=== PATIENT | female | born 1955 | race Caucasian/White ===

== ENCOUNTER 2018-02-05 23:07 | Inpatient (IN) ==
--- NOTE | 2018-02-05 23:40 | ED ---
HPI General Chief complaint: Head Injury Stated complaint: Head Injury Time Seen by Provider: 02/05/18 23:16 Source: patient Mode of arrival: EMS Limitations: no limitations History of Present Illness HPI Narrative: The patient is a 62-year-old female who presents to the emergency department as a transfer from [place], [place]. The patient was seen at [facility] for hematemesis and blood in her stool that started yesterday. The patient describes the blood as bright red via the emesis and in the stool. The patient was evaluated at [facility] where she was noted to have bruising on the left aspect of the face and back. The patient underwent a workup revealing a subdural hematoma, left facial fractures, and anemia. The patient was transferred to [facility] where she was accepted by Dr. Burnett. Dr. Acosta, the trauma surgeon, has agreed to evaluate the patient in consultation. The patient currently takes no anticoagulants. She does complain of a mild headache, left-sided facial pain. The patient states she had 3 beers last night. She does have a history of chronic alcohol use. She denies any difficulty using her upper or lower extremities. MD complaint: Reports blood streaked emesis and blood streaked stool Onset (ago): day(s) Pain Consistency: intermittent Severity: mild Relieving factors: none Exacerbating factors: bowel movement Context: Reports alcohol abuse Associated symptoms: Reports nausea, vomiting and easy bruising Treatments Prior to Arrival: Reports none Related Data Home Medications Medication Instructions Recorded Confirmed citalopram 10 mg PO DAILY 02/05/18 02/05/18 clonazepam 0.5 mg PO BID 02/05/18 02/05/18 lamotrigine 200 mg PO BID 02/05/18 02/05/18 Allergies Allergy/AdvReac Type Severity Reaction Status Date / Time No Known Allergies Allergy Verified 02/05/18 23:19 Review of Systems ROS: all other systems reviewed are negative [facility] Medical History Medical History H/O: hysterectomy (Acute) Multiple sclerosis (Acute) Surgical History Surgical History H/O gastric bypass (Acute) History of cholecystectomy (Acute) Social History Social History Smoking Status: Current every day smoker Tobacco Type: E-Cigarettes How Often Do You Have a Drink Containing Alcohol: 4 or more times a week Recent Travel in [facility] within the Last 8 Weeks: No Recent Out of Country Travel within the Last 8 Weeks: No Exam Narrative Exam Narrative: GENERAL: Awake, alert, pleasant 62-year-old female who appears her stated age and is in no acute respiratory distress. SKIN: Focused skin assessment warm/dry. Areas of ecchymosis noted in the extremities bilaterally. Patient does have areas of ecchymosis on the left and right aspect of the mid thoracic and superior lumbar region. HEAD: Swelling over the left facial aspect with ecchymosis per EYES: Pupils equal and round. Pupils are 3 mm bilateral and reactive. EOMs are intact. Patient is able to see fingers at a distance of 2 feet. ENT: No nasal bleeding or discharge. Mucous membranes pink and moist. NECK: Trachea midline. No JVD. No tenderness of the midline of the cervical vertebrae. CARDIOVASCULAR: Regular rate and rhythm. No murmur appreciated. RESPIRATORY: No accessory muscle use. Clear to auscultation. Breath sounds equal bilaterally. GASTROINTESTINAL: Abdomen soft, non-tender, nondistended. No rebound tenderness per MUSCULOSKELETAL: No obvious deformities. No clubbing. No cyanosis. No edema. Back: No tenderness over the thoracic or lumbar vertebrae. Ecchymosis noted over the left and right aspect of the mid thoracic region and superior lumbar region. NEUROLOGICAL: Awake and alert. No obvious cranial nerve deficits. Motor grossly within normal limits. Normal speech. Alert and oriented x4. Follows commands without difficulty. PSYCHIATRIC: Appropriate mood and affect; insight and judgment normal. Course Initial Documented Vital Signs Temperature 97.9 F 02/05/18 23:20 Pulse Rate 99 H 02/05/18 23:20 Respiratory Rate 18 02/05/18 23:20 Blood Pressure 132/78 02/05/18 23:20 Pulse Oximetry 98 02/05/18 23:20 Last Documented Vital Signs Temperature 97.9 F 02/05/18 23:20 Pulse Rate 99 H 02/05/18 23:20 Respiratory Rate 18 02/05/18 23:20 Blood Pressure 132/78 02/05/18 23:20 Pulse Oximetry 98 02/05/18 23:20 Medical Decision Making MDM Narrative Medical decision making narrative: I did review the patient's CT results and laboratory results from [facility]. I discussed the patient with Dr. Burnett who agrees with admission. The patient's UA does reveal moderate blood and trace leukocyte esterase. Hemoglobin 9.0, hematocrit 20.3, platelet count 296, MCV 105.6, white count 4.6 PT 12.2, INR 1.16, PTT 31.7 Sodium 133, potassium 4.4, chloride 105, CO2 25, anion gap 3, glucose 97, BUN 15 , creatinine 1.3, calcium 8.1, GFR 44.1, alkaline phosphatase 144, lipase 55, AST 37, ALT 31, total bili 0.9, lactic acid 2.2 Troponin less than 0.012 CT of the brain reveals air-fluid level within the left side of maxillary sinus associated posterior left-sided maxillary sinus wall fracture. Minimally depressed left sided zygomatic arch fracture with overlying soft tissue hematoma. No evidence for acute CVA. Small subtle right sided frontal subdural hematoma. Cerebral atrophy with periventricular and subcortical white matter changes consistent with microangiopathic disease. Chest x-ray revealed no acute cardiopulmonary disease The patient does have ecchymosis of the left and right aspect of the back with known subdural hematoma and facial fractures. No CT the cervical spine or abdomen/pelvis was performed at the previous facility, therefore, those CTs were ordered. CT of the cervical spine revealed a spinous process fracture and a fracture of the C7 vertebral body, subtle, therefore, patient was placed in a [place] J collar. Dr. Burnett was notified of these findings. CT of the thorax does reveal multiple rib fractures and a fracture of T5. CT the abdomen and pelvis reveals chronic changes, no acute findings. I discussed the findings with the trauma surgeon, Dr. Acosta, he is comfortable with admission to Dr. Burnett into the floor as the injury occurred [address] Burnett was notified of these findings. Medical Screen Exam Complete: Yes Emergency Medical Condition: Yes Differential Diagnosis Differential Diagnosis: Differential diagnosis includes upper GI bleed, lower GI bleed, esophageal varices, gastritis, peptic ulcer disease, alcohol abuse, thrombus cytopenia, subdural hematoma, facial fractures. Lab Data Lab Results 02/05/18 Range/Units 23:35 Blood Type O Positive Blood Type Recheck Required Antibody Screen Negative Imaging Data Radiologist's impression: Abdomen/Pelvis CT 02/06/18 00:00 CONCLUSION: 1. No acute abnormality seen. 2. Patient status post vertebroplasty at T11 and L1. There appears to be prominent posterior osteophytic ridging at the T12-L1 and L1-L2 disc levels is likely a chronic response secondary to prior fracture. 3. Small 5 mm hyperenhancing mass of the right lower lobe.. This is nonspecific. This can be followed with a CT or MRI examination 6 months. 4. Mild free fluid in the pelvis. 5. Small midline umbilical hernia containing mesenteric fat. Cervical Spine CT 02/06/18 00:00 CONCLUSION: 1. Acute fracture at the base of the C4 spinous process. 2. Suspected subtle fracturing at the anterior inferior right lateral aspect of the C7 vertebral body best seen on the coronal images. 3. Fracturing of the lateral aspect of the right T1 transverse process. 4. Degenerative change as described above. Chest CT 02/06/18 00:00 CONCLUSION: 1. Fracture of the superior aspect of the T5 vertebral body. There is mild concavity to the superior endplate of T5 sclerosis at the T5 vertebral body. 2. Acute fracturing at the right T1 transverse process. 3. Fracture with medial and lateral aspect of the right clavicle. 4. Fracturing of the anterior right third, fourth, sixth and seventh ribs. Discharge Plan Discharge Disposition Patient Disposition: 30 Still Patient Discharge Condition Condition: Stable Discharge Details Diagnosis: Acute subdural hematoma, Cranial facial fractures, GI bleed Physicians Team ED Provider: Robin Rossi Primary Care Provider: Primary Care Irasema Pacheco Attending Provider: Tatum Burnett Status ED Status: Admitted Patient
--- NOTE | 2018-02-06 00:44 | CT ---
EXAM DATE: 02/06/2018 12:00 AM EDT AGE/SEX: 62 years / Female INDICATIONS: Trauma, fall. Neck pain. CLINICAL DATA: This is the patient's initial encounter. Patient reports that signs and symptoms have been present for 1 day and indicates a pain score of 3/10. MEDICAL/SURGICAL HISTORY: Anemia. Multiple sclerosis. Kyphoplasty. RADIATION DOSE: 14.44 CTDI (mGy) COMPARISON: No prior exams available for comparison. TECHNIQUE: Contiguous axial images were obtained using helical multirow detector technique. The vol umetric data was post-processed with multiplanar reconstruction in oblique axial, sagittal, and coron al planes. Using automated exposure control and adjustment of the mA and/or kV according to patient s ize, radiation dose was kept as low as reasonably achievable to obtain optimal diagnostic quality ra ges. DICOM format image data is available electronically for review and comparison. FINDINGS: Vertebrae: The cervical vertebral bodies are normal in height. There is fracturing at the anterior i nferior right lateral aspect of the C7 vertebral body best seen on the coronal images. The linear reynaldo ency at C7 is only seen at the anterior inferior right lateral aspect of the C7 vertebral body. The l eft and posterior aspects of the C7 vertebral body appear normal. There does appear to fracturing at the C4 spinous process. There is fracturing of the lateral aspect of the right T1 transverse process. Alignment: There is minimal anterior subluxation of C4 on C5 and posterior subluxation of C5 on C6 l ikely related to degenerative change in facet hypertrophy. C2-3: The bony spinal canal is normal in size. No evidence of disc bulge or herniation. The neural foramina are bilaterally patent. There is bilateral facet hypertrophy being worse on the left. C3-4: The bony spinal canal is normal in size. No evidence of disc bulge or herniation. There is b ilateral facet hypertrophy being worse on the right. There is narrowing of the right neural foramina. There is mild right uncovertebral hypertrophy. C4-5: The bony spinal canal is normal in size. No evidence of disc bulge or herniation. The neural foramina are bilaterally patent. There is bilateral facet hypertrophy being worse on the right. Agai n noted is the fracture at the base of the C4 spinous process. C5-6: The bony spinal canal is normal in size. No evidence of disc bulge or herniation. The neural foramina are bilaterally patent. There is bilateral facet hypertrophy. C6-7: The bony spinal canal is normal in size. No evidence of disc bulge or herniation. The neural foramina are bilaterally patent. There is bilateral facet hypertrophy. C7-T1: The bony spinal canal is normal in size. No evidence of disc bulge or herniation. The neura l foramina are bilaterally patent. CONCLUSION: 1. Acute fracture at the base of the C4 spinous process. 2. Suspected subtle fracturing at the anterior inferior right lateral aspect of the C7 vertebral bod y best seen on the coronal images. 3. Fracturing of the lateral aspect of the right T1 transverse process. 4. Degenerative change as described above. Electronically signed by: Hermelindo Bolivar MD 02/06/2018 12:43 AM EDT
--- NOTE | 2018-02-06 00:52 | CT ---
EXAM DATE: 02/06/2018 12:00 AM EDT AGE/SEX: 62 years / Female INDICATIONS: Patient fell, bruising to back. Also states blood in stool and hematemesis. CLINICAL DATA: This is the patient's initial encounter. Patient reports that signs and symptoms have been present for 2 days and indicates a pain score of 8/10. MEDICAL/SURGICAL HISTORY: Anemia. Multiple sclerosis. Gi Bleed. Cholecystectomy. Gastric bypass . Kyphoplasty. Hysterectomy. RADIATION DOSE: 5.10 CTDI (mGy) ; Combined studies COMPARISON: [facility] [place], CT CERVICAL SPINE W/O CONTRAST, 02/05/2018. . TECHNIQUE: Multiple contiguous axial images were obtained through the chest during bolus infusion of 95 ml Omnipaque 350 (iohexol) nonionic water-soluble contrast as a cumulative dose for multiple exa ms. Images were obtained in suspended respiration using multiple row detector helical technique. U sing automated exposure control and adjustment of the mA and/or kV according to patient size, radiati on dose was kept as low as reasonably achievable to obtain optimal diagnostic quality images. DICOM format image data is available electronically for review and comparison. FINDINGS: Lungs: There is minimal increased density in the subpleural region of the posterior left base likely related to minimal atelectasis. Mediastinum: There is good visualization of the great vessels of the middle mediastinum. No evidenc e of mediastinal or hilar adenopathy/mass. Nonobstructing calcifications are seen at the arterial str uctures including the coronary arteries. Pleurae: No evidence of focal thickening or pleural effusion. Axillae: Unremarkable. Bony Structures: There is fracturing at the lateral aspect of the right T1 transverse process. There is fracturing at the medial and lateral aspects of the right clavicle. There is sclerosis at the T5 vertebral body. It does. Fracture at the superior aspect of the T5 vertebral body best seen on the sa gittal reconstructed images. The patient is status post vertebroplasty at T11 and L1. Spurs are seen throughout the thoracic and lumbar spine. There is fracturing of the anterior right third and fourth ribs and anterior right sixth and seventh ribs. Miscellaneous: The examination was extended to include the upper abdomen, and both adrenal glands ar e normal in size and configuration. CONCLUSION: 1. Fracture of the superior aspect of the T5 vertebral body. There is mild concavity to the superior endplate of T5 sclerosis at the T5 vertebral body. 2. Acute fracturing at the right T1 transverse process. 3. Fracture with medial and lateral aspect of the right clavicle. 4. Fracturing of the anterior right third, fourth, sixth and seventh ribs. Electronically signed by: Hermelindo Bolivar MD 02/06/2018 12:51 AM EDT
--- NOTE | 2018-02-06 00:59 | CT ---
EXAM DATE: 02/06/2018 12:00 AM EDT AGE/SEX: 62 years / Female INDICATIONS: Patient fell, bruising to back. Also states blood in stool and hematemesis. CLINICAL DATA: This is the patient's initial encounter. Patient reports that signs and symptoms have been present for 2 days and indicates a pain score of 8/10. MEDICAL/SURGICAL HISTORY: Anemia. Gastrointestinal bleed. Multiple sclerosis. Cholecystectomy . Gastric bypass. Kyphoplasty. Hysterectomy. ORAL CONTRAST: No oral contrast ingested. RADIATION DOSE: 5.10 CTDI (mGy) ; Combined studies COMPARISON: No prior exams available for comparison. TECHNIQUE: Multiple contiguous axial images were obtained through the abdomen and pelvis following b olus infusion of 95 ml Omnipaque 350 (iohexol) nonionic water-soluble contrast as a cumulative dose for multiple exams. No oral contrast ingested. Using automated exposure control and adjustment of t he mA and/or kV according to patient size, radiation dose was kept as low as reasonably achievable to obtain optimal diagnostic quality images. DICOM format image data is available electronically for r eview and comparison. FINDINGS: Lower Lungs: The visualized lower lungs are clear. Liver: There is a small 5 mm hyperenhancing mass seen at the posterior superior aspect of the right l obe of the liver. This is nonspecific. Given its small size it is thought this can be followed. The p atient is status post cholecystectomy. Spleen: Homogeneous density without enlargement. Pancreas: Unremarkable without mass or calcification. Kidneys: Normal in size and shape. No evidence of hydronephrosis. There is a small 4 mm hypodensity seen at the inferior aspect of the left kidney likely related to a small cyst. Adrenal Glands: Unremarkable. Aorta: Atherosclerotic calcifications are seen throughout the arterial system. Bowel/Mesentery: The patient appears to be status post gastric surgery potentially from gastric bypa ss procedure. Abdominal Wall: There is a small midline hernias the umbilicus level containing a small amount of me senteric fat. Retroperitoneum: No evidence of adenopathy in the retrocrural, para-aortic, or deep pelvic regions. Bladder: Contours are smooth. Reproductive Organs: No abnormal masses or calcifications seen. There is mild free fluid seen in the pelvis. Inguinal: The inguinal region is unremarkable without evidence of adenopathy. Bony Structures: The patient is status post vertebroplasty at T11 and L1. There is prominent concavi ty to the superior endplate of L2 which likely is related to very prominent Schmorl's. There is promi nent posterior osteophytic ridging at the T12-L1 and L1-L2 levels causing mild impressions on the the deanna sac. These are likely secondary to the prior fracture deformity. The patient is status post angio plasty of L1. There is degenerative change in the lumbar spine. CONCLUSION: 1. No acute abnormality seen. 2. Patient status post vertebroplasty at T11 and L1. There appears to be prominent posterior osteoph ytic ridging at the T12-L1 and L1-L2 disc levels is likely a chronic response secondary to prior frac ture. 3. Small 5 mm hyperenhancing mass of the right lower lobe.. This is nonspecific. This can be followe d with a CT or MRI examination 6 months. 4. Mild free fluid in the pelvis. 5. Small midline umbilical hernia containing mesenteric fat. Electronically signed by: Hermelindo Bolivar MD 02/06/2018 12:58 AM EDT
[2018-02-06] MEDS ORDERED: LORazepam 1 MG Tablet PO PRN (01:46)
[2018-02-06] MEDS ORDERED: Haloperidol Inj 5 MG/ML Ampul IV.PUSH PRN (01:46)
--- NOTE | 2018-02-06 02:38 | P.HP ---
History of Present Illness Service: [facility] Primary Care Physician: No Primary Care Physician History of Present Illness: 62-year-old female with a past medical history significant for multiple sclerosis and depression presents to the emergency department for the evaluation of hematemesis and bright red blood per rectum. The patient reports one episode of hematemesis followed by bloody diarrhea that happened yesterday morning. She presented to [facility] for evaluation. Evaluation in [facility] revealed a small subdural hematoma and left-sided facial bone fractures. The patient was transferred to [facility] for further evaluation. On arrival, the patient is noted to have ecchymoses surrounding the left eye and multiple bruises on her back. She complains of a left-sided headache. CT of the neck showed a C7 vertebral body fracture and a fracture of the lateral aspect of the right T1 transverse process. Chest CT significant for fracture of the T5 vertebral body, right clavicular fracture and fracturing of the anterior third, fourth, sixth and seventh ribs. The patient reports that she fell twice, once on Sunday and once on Sunday. She reports that she felt dizzy which she attributes to her multiple sclerosis. She does not remember falling either time. She reports possible loss of consciousness on Sunday. She states the fall happened so fast she is unclear as to how she ended up on her back. She thinks she may have tumbled. She endorses drinking 2-3 beers nightly. She denies any chest pain. No abdominal pain. No lateralizing signs/symptoms. No fever/chills. Inpatient Certification: I certify that the inpatient services were ordered in accordance with Medicare regulations governing the order. This includes certification that hospital inpatient services are reasonable and necessary and in the case of services not specified as inpatient-only under 42 CFR 419.22(n), that they are appropriately provided as inpatient services in accordance to with the 2-midnight benchmark under 43 CFR 412.3(e) Estimated Total Length of Stay (Days): 3 Plans for Post Hospital Care: Not yet determined Review of Systems All other systems reviewed negative except as stated in [facility] - History History Provided By: Predictive Maintenance Specialist / EMT - Medical History Medical History: Medical History (Last Updated 02/06/18 @ 02:24 by Tatum Burnett MD) Depression H/O: hysterectomy Multiple sclerosis - Surgical History Surgical History: Surgical History (Last Reviewed 02/06/18 @ 02:24 by Tatum Burnett MD) H/O gastric bypass History of cholecystectomy - Family History Family History: Family History (Last Updated 02/06/18 @ 02:25 by Tatum Burnett MD) Other CHF (congestive heart failure) Cirrhosis Diabetes mellitus - Tobacco History Tobacco Use In Past 30 Days: No Smoking Status: Current every day smoker Tobacco Type: E-Cigarettes - Alcohol History How Often Do You Have a Drink Containing Alcohol: 4 or more times a week - Travel History Recent Travel in the [place] Within the Last 8 Weeks: No Recent Travel Out of the Country Within the Last 8 Weeks: No - Immunization History Tetanus Immunization: <5 Years Medications and Allergies Active Medications: Active Medications Citalopram Hydrobromide (Celexa) 10 mg PO DAILY BARRON Flumazenil (Romazecon Inj) 0.2 mg IV.PUSH Q1M PRN PRN Reason: OVERSEDATION Folic Acid (Folic Acid) 1 mg PO DAILY BARRON Stop: 02/11/18 08:59 Haloperidol Lactate (Haldol Inj) 1 mg IV.PUSH Q15M PRN PRN Reason: for severe agitation Lamotrigine (Lamictal) 200 mg PO BID BARRON Lorazepam (Ativan) 2 mg PO Q2H PRN PRN Reason: for CIWA 11-14 Lorazepam (Ativan Inj) 2 mg IV.PUSH Q2H PRN PRN Reason: for CIWA 11-14 Lorazepam (Ativan Inj) 2 mg IV.PUSH Q1H PRN PRN Reason: for CIWA 15-20 Lorazepam (Ativan Inj) 2 mg IV.PUSH Q15M PRN PRN Reason: for CIWA > 20 Lorazepam (Ativan Inj) 1 mg IV.PUSH Q4H PRN PRN Reason: for CIWA 8-10 Lorazepam (Ativan) 1 mg PO Q4H PRN PRN Reason: for CIWA 8-10 Morphine Sulfate (Morphine Inj) 2 mg IV.PUSH Q4H PRN PRN Reason: pain 6-10 Multivitamins/Minerals (Theragran-M) 1 tab PO DAILY BARRON Stop: 02/11/18 08:59 Pantoprazole Sodium (Protonix Inj) 40 mg IV.PUSH BID BARRON Sodium Chloride (Ns Flush) 2 ml IV.FLUSH BID BARRON Sodium Chloride (Ns Flush) 2 ml IV.FLUSH PRN PRN PRN Reason: FLUSH AFTER USING IV ACCESS Thiamine HCl (Vitamin B1) 100 mg PO DAILY BARRON Allergies Allergy/AdvReac Type Severity Reaction Status Date / Time No Known Allergies Allergy Verified 02/05/18 23:19 Home Medications Medication Instructions Recorded Confirmed Type citalopram 10 mg PO DAILY 02/05/18 02/05/18 History clonazepam 0.5 mg PO BID 02/05/18 02/05/18 History lamotrigine 200 mg PO BID 02/05/18 02/05/18 History Exam Vital signs: Vital Signs 02/05/18 23:20 Temperature 97.9 F Pulse Rate 99 H Respiratory Rate 18 Blood Pressure 132/78 Pulse Oximetry 98 Intake & Output 02/05/18 02/05/18 02/06/18 06:59 18:59 06:59 Weight 45 kg Narrative: Gen.: No acute distress Head: Swelling and ecchymoses surrounding left eye EENT: Pupils equal round and reactive to light. Nose without drainage. Airway intact. Throat without injection. Cardiovascular: Regular rate and rhythm. No murmurs, rubs or gallops. Respiratory: Lungs clear to auscultation bilaterally. No wheezes or rhonchi. Abdomen: Soft, nontender, nondistended. No peritoneal signs. Musculoskeletal: No gross deformities. No edema. Multiple ecchymoses on the back. Skin: No obvious rashes or erythema. Neuro: Sensory and motor grossly intact. Cranial nerves II through XII grossly intact. Results - Labs Labs: Laboratory Results - last 24 hr 02/05/18 23:35 Blood Type O Positive Blood Type Recheck Required Antibody Screen Negative - Imaging Impressions Abdomen/Pelvis CT 02/06/18 00:00 CONCLUSION: 1. No acute abnormality seen. 2. Patient status post vertebroplasty at T11 and L1. There appears to be prominent posterior osteophytic ridging at the T12-L1 and L1-L2 disc levels is likely a chronic response secondary to prior fracture. 3. Small 5 mm hyperenhancing mass of the right lower lobe.. This is nonspecific. This can be followed with a CT or MRI examination 6 months. 4. Mild free fluid in the pelvis. 5. Small midline umbilical hernia containing mesenteric fat. Cervical Spine CT 02/06/18 00:00 CONCLUSION: 1. Acute fracture at the base of the C4 spinous process. 2. Suspected subtle fracturing at the anterior inferior right lateral aspect of the C7 vertebral body best seen on the coronal images. 3. Fracturing of the lateral aspect of the right T1 transverse process. 4. Degenerative change as described above. Chest CT 02/06/18 00:00 CONCLUSION: 1. Fracture of the superior aspect of the T5 vertebral body. There is mild concavity to the superior endplate of T5 sclerosis at the T5 vertebral body. 2. Acute fracturing at the right T1 transverse process. 3. Fracture with medial and lateral aspect of the right clavicle. 4. Fracturing of the anterior right third, fourth, sixth and seventh ribs. Caprini VTE Risk Assessment Caprini VTE Risk Assessment: Moderate/High Risk (score >= 2) Caprini Risk Assessment Model: Point Value = 1 Point Value = 2 Point Value = 3 Point Value = 5 Age 41-60 Minor surgery BMI > 25 kg/m2 Swollen legs Varicose veins or History of unexplained or recurrent spontaneous Oral contraceptives or hormone replacement Sepsis (< 1 month) Serious lung disease, including pneumonia (< 1 month) Abnormal pulmonary function Acute myocardial infarction Congestive heart failure (< 1 month) History of inflammatory bowel disease Medical patient at bed rest Age 61-74 Arthroscopic surgery Major open surgery (> 45 min) Laparoscopic surgery (> 45 min) Malignancy Confined to bed (> 72 hours) Immobilizing plaster cast Central venous access Age >= 75 History of VTE Family history of VTE Factor V Leiden Prothrombin [id number] Lupus anticoagulant Anticardiolipin antibodies Elevated serum homocysteine Heparin-induced thrombocytopenia Other congenital or acquired thrombophilia Stroke (< 1 month) Elective arthroplasty Hip, pelvis, or leg fracture Acute spinal cord injury (< 1 month) Prophylaxis Regimen: Total Risk Factor Score Risk Level Prophylaxis Regimen 0-1 Low Early ambulation 2 Moderate Order ONE of the following: *Sequential Compression Device (SCD) *Heparin 5000 units SQ BID 3-4 Higher Order ONE of the following medications: *Heparin 5000 units SQ TID *Enoxaparin/Lovenox 40 mg SQ daily (WT < 150 kg, CrCl > 30 mL/min) *Enoxaparin/Lovenox 30 mg SQ daily (WT < 150 kg, CrCl > 10-29 mL/min) *Enoxaparin/Lovenox 30 mg SQ BID (WT < 150 kg, CrCl > 30 mL/min) AND/OR *Sequential Compression Device (SCD) 5 or more Highest Order ONE of the following medications: *Heparin 5000 units SQ TID (Preferred with Epidurals) *Enoxaparin/Lovenox 40 mg SQ daily (WT < 150 kg, CrCl > 30 mL/min) *Enoxaparin/Lovenox 30 mg SQ daily (WT < 150 kg, CrCl > 10-29 mL/min) *Enoxaparin/Lovenox 30 mg SQ BID (WT < 150 kg, CrCl > 30 mL/min) AND *Sequential Compression Device (SCD) Assessment and Plan - Plan Assessment/plan: 1. Fall/syncope Patient with vertebral body fractures of C7 and T5 [place] J collar in place Facial CT done at [facility] shows small subdural hematoma Neurosurgery consulted, appreciate assistance T1 transverse process fracture Multiple rib fractures Trauma surgery, Dr. Acosta, consulted, appreciate assistance. Patient cleared for admission to the medical service. Minimally depressed left sided zygomatic arch fracture with overlying soft tissue hematoma OMFS consulted, appreciate assistance 2. GI bleed Patient with one episode of hematemesis and bright red blood per rectum Hemoglobin 9 at [facility] Baseline unknown Serial H&H IV Protonix Gastroenterology consulted, appreciate assistance 3. Alcohol abuse Patient reports drinking a minimum of 2-3 beers daily Thiamine/folate/multivitamin CIWA protocol Monitor for signs of withdrawal 4. MS Continue outpatient follow-up 5. Depression Continue home citalopram and Lamictal FEN NPO Electrolytes: Monitor and replete as needed Holding pharmacologic anticoagulation for GI bleed and subdural hematoma NS at 70 cc/hour
[2018-02-06] MEDS: Sod Chloride 0.9% Inj 1,000 ML IV.CONT SCH ×2 (02:49→18:36)
[2018-02-06 03:36] LABS: Hematocrit 22.1 % (35.0-46.0); Hemoglobin 7.3 gm/dL (11.6-15.3)
--- NOTE | 2018-02-06 09:15 | CT ---
EXAM DATE: 02/06/2018 8:23 AM EDT AGE/SEX: 62 years / Female INDICATIONS: Follow up bleed CLINICAL DATA: This is the patient's initial encounter. Patient reports that signs and symptoms have been present for 1 day and indicates a pain score of 5/10. MEDICAL/SURGICAL HISTORY: Diabetes. Cirrhosis. Gastric bypass. RADIATION DOSE: 38.82 CTDI (mGy) COMPARISON: No prior exams available for comparison. TECHNIQUE: CT of the head without contrast. Using automated exposure control and adjustment of the mA and/or kV according to patient size, radiation dose was kept as low as reasonably achievable to ob tain optimal diagnostic quality images. DICOM format image data is available electronically for revi ew and comparison. FINDINGS: Cerebrum: The ventricles are normal for age. There is bilateral cortical atrophy characteristic for patient's age. No evidence of midline shift, mass lesion or acute infarction. . There is a very small acute to subacute right-sided subdural hematoma with approximately 3 mm of separation along the righ t frontal/parietal lobe. There is chronic-appearing white matter changes bilaterally. Posterior Fossa: The cerebellum and brainstem are intact. The 4th ventricle is midline. The cerebe llopontine angle is unremarkable. Extracranial: There is a small fluid level in the left maxillary sinus. There appears to be a fractu re involving the posterior wall of the left maxillary sinus. There also appears to be a nondisplaced fracture involving the mid section of the left zygomatic arch. The rest the paranasal sinuses are theodore ssly clear. Skull: The calvaria is intact. No evidence of skull fracture. There are no prior studies for direct comparison at this time. CONCLUSION: 1. Small acute to subacute right-sided subdural hematoma with approximately 3 mm of separation along the right frontal/parietal lobe. 2. Fracture involving the posterior wall of left maxillary sinus with an air-fluid level. There also appears to be a nonspecific fracture involving the mid body of the left zygomatic arch. 3. Bilateral cortical atrophy and chronic white matter changes. . Electronically signed by: Sharif Roblero MD 02/06/2018 9:13 AM EDT
[2018-02-06] MEDS: Pantoprazole Inj 40 MG Vial IV.PUSH SCH ×2 (10:30→22:00)
[2018-02-06] MEDS: lamoTRIgine 100 MG Tablet PO SCH ×2 (10:53→21:59)
[2018-02-06] MEDS: Folic Acid 1 MG Tablet PO SCH (10:54)
[2018-02-06 11:08] LABS: Baso % (Auto) 0.5 % (0.0-2.0); Eos # (Auto) 0.1 th/mm3 (0.0-0.4); Eos % (Auto) 3.6 % (0.0-4.0); Hematocrit 21.4 % (35.0-46.0); Hemoglobin 7.2 gm/dL (11.6-15.3); Lymph # (Auto) 0.9 th/mm3 (1.0-4.8); Lymph % (Auto) 24.2 % (9.0-44.0); Mean Corpuscular HGB Conc 33.6 % (32.0-36.0); Mean Corpuscular Hemoglobin 35.3 pg (27.0-34.0); Mean Corpuscular Volume 104.9 fL (80.0-100.0); Mean Platelet Volume 7.6 fL (7.0-11.0); Mono # (Auto) 0.4 th/mm3 (0.0-0.9); Mono % (Auto) 9.4 % (0.0-8.0); Neut # (Auto) 2.4 th/mm3 (1.8-7.7); Neut % (Auto) 62.3 % (16.0-70.0); Platelet Count 213 th/mm3 (150-450); Red Blood Count 2.04 mil/mm3 (4.00-5.30); Red Cell Distribution Width 14.3 % (11.6-17.2); White Blood Count 3.8 th/mm3 (4.0-11.0)
[2018-02-06 11:28] LABS: Albumin 1.7 g/dL (3.4-5.0); Calcium 7.3 mg/dL (8.5-10.1); Carbon Dioxide 27.4 meq/L (21.0-32.0); Potassium 4.1 meq/L (3.5-5.1)
[2018-02-06 11:29] LABS: Total Protein 4.6 g/dL (6.4-8.2)
--- NOTE | 2018-02-06 11:39 | XR ---
EXAM DATE: 02/06/2018 10:29 AM EDT AGE/SEX: 62 years / Female INDICATIONS: Shortness of breath. CLINICAL DATA: This is the patient's initial encounter. Patient reports that signs and symptoms have been present for 3 days and indicates a pain score of 0/10. MEDICAL/SURGICAL HISTORY: Cirrhosis. Diabetes. Gastric bypass. COMPARISON: [facility] [place], CT CHEST W CONTRAST, 02/05/2018. . FINDINGS: A single AP view of the chest demonstrates the lungs to be symmetrically aerated without evidence of mass, infiltrate or effusion. The cardiomediastinal contours are unremarkable. Prior kyphoplasty in the lower thoracolumbar spine. T5 compression fracture not well demonstrated. CONCLUSION: 1. No acute cardiopulmonary disease. Electronically signed by: Doe Guerrero MD 02/06/2018 11:38 AM EDT
[2018-02-06 11:58] LABS: Hematocrit 22.4 % (35.0-46.0); Hemoglobin 7.6 gm/dL (11.6-15.3)
--- NOTE | 2018-02-06 12:00 | P.CONGI ---
History of Present Illness Consult date: 02/06/18 Consult reason: Hematemesis with bright red blood per rectum Chief complaint: GI Bleed, Subdural Hematoma, Facial Fractures History of Present Illness: This patient is a 62-year-old female with a past medical history that is significant for multiple sclerosis and depression. She presented to the emergency room last evening with report of hematemesis with bright red blood per rectum. Our service has been consulted to evaluate patient's report of bright red blood per rectum and hematemesis. Patient states that she had one episode of hematemesis along with 1 bloody diarrhea that did not appeared to have any stool present. She reports that this happened on Sunday morning. Of note, patient presented to [facility] and in [facility] for evaluation post fall. Patient presented with a complaint of left-sided headache, reports possible loss of consciousness. Patient was found to have fracture of the C7 and T1. Chest CT also showed fracture of T5, right clavicular fracture and fracture of the third fourth, sixth and seventh ribs. Patient states that she fell twice once on Sunday and then again on Sunday. She reports feeling dizzy which she states is not new based on her diagnosis of multiple sclerosis. Per patient, on Sunday morning she started to experience nausea with vomiting where she vomited bright red blood and had a bloody bowel movement. Patient denies being on any blood thinners or use of aspirin she denies any use of NSAIDs. Surgical history includes gastric bypass in 2013, hysterectomy, and cholecystectomy. Patient states that last EGD was done in 2013 where they found a small ulcer in her stomach. Patient is not on any type of antireflux medication or PPI. She states that she has had difficulty swallowing pills and solid foods for the past year denies any difficulty with liquids. Patient denies tobacco use but does report that she uses nicotine vapor. She also states that she drinks several beers each day and has been doing so for at least 10 years. <Julieta Luther - Last Filed: 02/06/18 11:47> Review of Systems All other systems reviewed negative except as stated in HPI <Julieta Luther - Last Filed: 02/06/18 11:47> PMFSH - History History Provided By: [employer] / EMT - Medical History Medical History: Medical History (Last Updated 02/06/18 @ 02:24 by Tatum Burnett MD) Depression H/O: hysterectomy Multiple sclerosis - Surgical History Surgical History: Surgical History (Last Reviewed 02/06/18 @ 02:24 by Tatum Burnett MD) H/O gastric bypass History of cholecystectomy - Family History Family History: Family History (Last Updated 02/06/18 @ 02:25 by Tatum Burnett MD) Other CHF (congestive heart failure) Cirrhosis Diabetes mellitus - Tobacco History Tobacco Use In Past 30 Days: No Smoking Status: Current every day smoker Tobacco Type: E-Cigarettes - Alcohol History How Often Do You Have a Drink Containing Alcohol: 4 or more times a week - Travel History Recent Travel in the [place] Within the Last 8 Weeks: No Recent Travel Out of the Country Within the Last 8 Weeks: No - Immunization History Tetanus Immunization: <5 Years <Julieta Luther - Last Filed: 02/06/18 11:47> - Medical History Medical History: Medical History (Last Updated 02/06/18 @ 02:24 by Tatum Burnett MD) Depression H/O: hysterectomy Multiple sclerosis - Surgical History Surgical History: Surgical History (Last Reviewed 02/06/18 @ 02:24 by Tatum Burnett MD) H/O gastric bypass History of cholecystectomy - Family History Family History: Family History (Last Updated 02/06/18 @ 02:25 by Tatum Burnett MD) Other CHF (congestive heart failure) Cirrhosis Diabetes mellitus <Ferny Gates - Last Filed: 02/06/18 17:37> Medications and Allergies Active Medications: Active Medications Acetaminophen (Tylenol Liq) 650 mg PO Q4H PRN PRN Reason: FEVER > 101 F Albuterol (Duoneb Neb (Rohit)) 1 ampul NEB Q6HR NEB ROHIT Albuterol (Duoneb Neb (Prn)) 1 ampul NEB Q2HR NEB PRN PRN Reason: SHORTNESS OF BREATH Citalopram Hydrobromide (Celexa) 10 mg PO DAILY ROHIT Flumazenil (Romazecon Inj) 0.2 mg IV.PUSH Q1M PRN PRN Reason: OVERSEDATION Folic Acid (Folic Acid) 1 mg PO DAILY ROHIT Stop: 02/11/18 08:59 Last Admin: 02/06/18 10:54 Dose: Not Given Haloperidol Lactate (Haldol Inj) 1 mg IV.PUSH Q15M PRN PRN Reason: for severe agitation Sodium Chloride (Ns Inj) 1,000 mls @ 70 mls/hr IV.CONT .[id number] [facility] Last Admin: 02/06/18 02:49 Dose: 70 mls/hr Lamotrigine (Lamictal) 200 mg PO BID [facility] Last Admin: 02/06/18 10:53 Dose: Not Given Lidocaine HCl (Lidoderm 5% Patch.12 Hr) 1 patch T-DERMAL DAILY [facility] Lorazepam (Ativan) 2 mg PO Q2H PRN PRN Reason: for CIWA 11-14 Lorazepam (Ativan Inj) 2 mg IV.PUSH Q2H PRN PRN Reason: for CIWA 11-14 Lorazepam (Ativan Inj) 2 mg IV.PUSH Q1H PRN PRN Reason: for CIWA 15-20 Lorazepam (Ativan Inj) 2 mg IV.PUSH Q15M PRN PRN Reason: for CIWA > 20 Lorazepam (Ativan Inj) 1 mg IV.PUSH Q4H PRN PRN Reason: for CIWA 8-10 Lorazepam (Ativan) 1 mg PO Q4H PRN PRN Reason: for CIWA 8-10 Morphine Sulfate (Morphine Inj) 2 mg IV.PUSH Q4H PRN PRN Reason: pain 6-10 Multivitamins/Minerals (Theragran-M) 1 tab PO DAILY [facility] Stop: 02/11/18 08:59 Pantoprazole Sodium (Protonix Inj) 40 mg IV.PUSH BID [facility] Last Admin: 02/06/18 10:30 Dose: 40 mg Patch Removal (Remove Old Patch) 1 each T-DERMAL HS [facility] Sodium Chloride (Ns Flush) 2 ml IV.FLUSH BID [facility] Last Admin: 02/06/18 10:53 Dose: Not Given Sodium Chloride (Ns Flush) 2 ml IV.FLUSH PRN PRN PRN Reason: FLUSH AFTER USING IV ACCESS Thiamine HCl (Vitamin B1) 100 mg PO DAILY [facility] <Julieta Luther - Last Filed: 02/06/18 11:47> Active Medications: Active Medications Acetaminophen (Tylenol Liq) 650 mg PO Q4H PRN PRN Reason: FEVER > 101 F Albuterol (Duoneb Neb (Rohit)) 1 ampul NEB Q6HR NEB [facility] Last Admin: 02/06/18 16:22 Dose: 1 ampul Albuterol (Duoneb Neb (Prn)) 1 ampul NEB Q2HR NEB PRN PRN Reason: SHORTNESS OF BREATH Citalopram Hydrobromide (Celexa) 10 mg PO DAILY [facility] Last Admin: 02/06/18 12:02 Dose: Not Given Flumazenil (Romazecon Inj) 0.2 mg IV.PUSH Q1M PRN PRN Reason: OVERSEDATION Folic Acid (Folic Acid) 1 mg PO DAILY [facility] Stop: 02/11/18 08:59 Last Admin: 02/06/18 10:54 Dose: Not Given Haloperidol Lactate (Haldol Inj) 1 mg IV.PUSH Q15M PRN PRN Reason: for severe agitation Sodium Chloride (Ns Inj) 1,000 mls @ 70 mls/hr IV.CONT .[id number] [facility] Last Infusion: 02/06/18 16:33 Dose: Infused Lamotrigine (Lamictal) 200 mg PO BID [facility] Last Admin: 02/06/18 10:53 Dose: Not Given Lidocaine HCl (Lidoderm 5% Patch.12 Hr) 1 patch T-DERMAL DAILY [facility] Last Admin: 02/06/18 15:30 Dose: 1 patch Lorazepam (Ativan) 2 mg PO Q2H PRN PRN Reason: for CIWA 11-14 Lorazepam (Ativan Inj) 2 mg IV.PUSH Q2H PRN PRN Reason: for CIWA 11-14 Lorazepam (Ativan Inj) 2 mg IV.PUSH Q1H PRN PRN Reason: for CIWA 15-20 Lorazepam (Ativan Inj) 2 mg IV.PUSH Q15M PRN PRN Reason: for CIWA > 20 Lorazepam (Ativan Inj) 1 mg IV.PUSH Q4H PRN PRN Reason: for CIWA 8-10 Lorazepam (Ativan) 1 mg PO Q4H PRN PRN Reason: for CIWA 8-10 Morphine Sulfate (Morphine Inj) 2 mg IV.PUSH Q4H PRN PRN Reason: pain 6-10 Last Admin: 02/06/18 15:32 Dose: 2 mg Multivitamins/Minerals (Theragran-M) 1 tab PO DAILY [facility] Stop: 02/11/18 08:59 Last Admin: 02/06/18 12:02 Dose: Not Given Pantoprazole Sodium (Protonix Inj) 40 mg IV.PUSH BID [facility] Last Admin: 02/06/18 10:30 Dose: 40 mg Patch Removal (Remove Old Patch) 1 each T-DERMAL HS [facility] Sodium Chloride (Ns Flush) 2 ml IV.FLUSH BID [facility] Last Admin: 02/06/18 10:53 Dose: Not Given Sodium Chloride (Ns Flush) 2 ml IV.FLUSH PRN PRN PRN Reason: FLUSH AFTER USING IV ACCESS Thiamine HCl (Vitamin B1) 100 mg PO DAILY [facility] Last Admin: 02/06/18 12:03 Dose: Not Given <Ferny Gates E - Last Filed: 02/06/18 17:37> Allergies Allergy/AdvReac Type Severity Reaction Status Date / Time No Known Allergies Allergy Verified 02/05/18 23:19 Home Medications Medication Instructions Recorded Confirmed Type citalopram 10 mg PO DAILY 02/05/18 02/05/18 History clonazepam 0.5 mg PO BID 02/05/18 02/05/18 History lamotrigine 200 mg PO BID 02/05/18 02/05/18 History Exam Vital signs: Vital Signs 02/05/18 23:20 02/06/18 06:01 02/06/18 08:00 Temperature 97.9 F Pulse Rate 99 H 78 63 Respiratory Rate 18 16 16 Blood Pressure 132/78 105/62 112/58 L Pulse Oximetry 98 99 96 Intake & Output 02/05/18 02/06/18 02/06/18 18:59 06:59 18:59 Output Total 300 / 300 Balance -300 / -300 Weight 45 kg Output: Urine 300 / 300 - Constitutional no acute distress, thin - Routine HEENT Exam Head: Present: normocephalic, abrasion, facial swelling Comments: Firm cervical collar in place, bruising surrounding left eye and maxillary area - Routine Neck Exam Comments: Cervical collar in place - Routine Respiratory Exam Present: CTA bilaterally. Absent: accessory muscle use - Routine Cardiovascular Exam Present: RRR - Routine Abdominal Exam Present: soft, normoactive bowel sounds. Absent: tenderness, distended, guarding, firm - Routine Extremities Exam Present: full ROM, pulses intact. Absent: edema - Routine Skin Exam Present: dry, warm - Routine Neurological Exam Present: alert, oriented X3 <Luther,Julieta - Last Filed: 02/06/18 11:47> Vital signs: Vital Signs 02/05/18 23:20 02/06/18 06:01 02/06/18 08:00 Temperature 97.9 F Pulse Rate 99 H 78 63 Respiratory Rate 18 16 16 Blood Pressure 132/78 105/62 112/58 L Pulse Oximetry 98 99 96 02/06/18 10:35 02/06/18 12:12 02/06/18 13:47 Temperature Pulse Rate 81 74 76 Respiratory Rate 14 18 14 Blood Pressure 126/59 L 114/58 L Pulse Oximetry 95 98 98 02/06/18 14:09 02/06/18 16:00 02/06/18 16:25 Temperature 97.8 F 98.5 F Pulse Rate 73 78 78 Respiratory Rate 17 17 18 Blood Pressure 116/56 L 107/56 L Pulse Oximetry 98 92 L 92 L Intake & Output 02/05/18 02/06/18 02/06/18 18:59 06:59 18:59 Intake Total 1000 / 1000 Output Total 300 / 300 Balance -300 / -300 1000 / 1000 Weight 45 kg Intake: IV 1000 / 1000 NS Inj 1,000 ML @ 70 mls/hr IV. 1000 / 1000 CONT .[id number] [facility] Rx#:[id number] Output: Urine 300 / 300 <Ferny Gates - Last Filed: 02/06/18 17:37> Results - Labs CBC & Chem 7: 02/06/18 10:45 02/06/18 10:45 Labs: Laboratory Results - last 24 hr 02/05/18 02/06/18 02/06/18 23:35 03:21 10:45 WBC 3.8 L RBC 2.04 L Hgb 7.3 L 7.2 L Hct 22.1 L 21.4 L MCV 104.9 H MCH 35.3 H MCHC 33.6 RDW 14.3 Plt Count 213 MPV 7.6 Neut % (Auto) 62.3 Lymph % (Auto) 24.2 [place] % (Auto) 9.4 H Eos % (Auto) 3.6 Baso % (Auto) 0.5 Neut # (Auto) 2.4 Lymph # (Auto) 0.9 L [place] # (Auto) 0.4 Eos # (Auto) 0.1 Baso # (Auto) 0.0 WBC Differential . Differential Comment Auto diff final Sodium Potassium Chloride Carbon Dioxide Anion Gap BUN Creatinine Estimated GFR Random Glucose Calcium Prot Corrected Calcium Total Bilirubin AST ALT Alkaline Phosphatase Total Protein Albumin Blood Type O Positive Blood Type Recheck Required Antibody Screen Negative 02/06/18 10:45 WBC RBC Hgb Hct MCV MCH MCHC RDW Plt Count MPV Neut % (Auto) Lymph % (Auto) [place] % (Auto) Eos % (Auto) Baso % (Auto) Neut # (Auto) Lymph # (Auto) [place] # (Auto) Eos # (Auto) Baso # (Auto) WBC Differential Differential Comment Sodium 143 Potassium 4.1 Chloride 110 H Carbon Dioxide 27.4 Anion Gap 6 BUN 13 Creatinine 1.15 H Estimated GFR 48 L Random Glucose 66 L Calcium 7.3 L* Prot Corrected Calcium 8.7 Total Bilirubin 0.5 AST 20 ALT 15 Alkaline Phosphatase 131 H Total Protein 4.6 L Albumin 1.7 L Blood Type Blood Type Recheck Antibody Screen - Imaging Impressions Abdomen/Pelvis CT 02/06/18 00:00 CONCLUSION: 1. No acute abnormality seen. 2. Patient status post vertebroplasty at T11 and L1. There appears to be prominent posterior osteophytic ridging at the T12-L1 and L1-L2 disc levels is likely a chronic response secondary to prior fracture. 3. Small 5 mm hyperenhancing mass of the right lower lobe.. This is nonspecific. This can be followed with a CT or MRI examination 6 months. 4. Mild free fluid in the pelvis. 5. Small midline umbilical hernia containing mesenteric fat. Cervical Spine CT 02/06/18 00:00 CONCLUSION: 1. Acute fracture at the base of the C4 spinous process. 2. Suspected subtle fracturing at the anterior inferior right lateral aspect of the C7 vertebral body best seen on the coronal images. 3. Fracturing of the lateral aspect of the right T1 transverse process. 4. Degenerative change as described above. Chest CT 02/06/18 00:00 CONCLUSION: 1. Fracture of the superior aspect of the T5 vertebral body. There is mild concavity to the superior endplate of T5 sclerosis at the T5 vertebral body. 2. Acute fracturing at the right T1 transverse process. 3. Fracture with medial and lateral aspect of the right clavicle. 4. Fracturing of the anterior right third, fourth, sixth and seventh ribs. Head CT 02/06/18 08:16 CONCLUSION: 1. Small acute to subacute right-sided subdural hematoma with approximately 3 mm of separation along the right frontal/parietal lobe. 2. Fracture involving the posterior wall of left maxillary sinus with an air- fluid level. There also appears to be a nonspecific fracture involving the mid body of the left zygomatic arch. 3. Bilateral cortical atrophy and chronic white matter changes. . Chest X-Ray 02/06/18 10:29 CONCLUSION: 1. No acute cardiopulmonary disease. <Julieta Luther - Last Filed: 02/06/18 11:47> - Labs CBC & Chem 7: 02/06/18 11:38 02/06/18 10:45 Labs: Laboratory Results - last 24 hr 02/05/18 02/06/18 02/06/18 23:35 03:21 10:45 WBC 3.8 L RBC 2.04 L Hgb 7.3 L 7.2 L Hct 22.1 L 21.4 L MCV 104.9 H MCH 35.3 H MCHC 33.6 RDW 14.3 Plt Count 213 MPV 7.6 Neut % (Auto) 62.3 Lymph % (Auto) 24.2 [place] % (Auto) 9.4 H Eos % (Auto) 3.6 Baso % (Auto) 0.5 Neut # (Auto) 2.4 Lymph # (Auto) 0.9 L [place] # (Auto) 0.4 Eos # (Auto) 0.1 Baso # (Auto) 0.0 WBC Differential . Differential Comment Auto diff final APTT Sodium Potassium Chloride Carbon Dioxide Anion Gap BUN Creatinine Estimated GFR Random Glucose Calcium Prot Corrected Calcium Total Bilirubin AST ALT Alkaline Phosphatase Total Protein Albumin Blood Type O Positive Blood Type Recheck Required Antibody Screen Negative 02/06/18 02/06/18 02/06/18 10:45 11:38 12:00 WBC RBC Hgb 7.6 L Hct 22.4 L MCV MCH MCHC RDW Plt Count MPV Neut % (Auto) Lymph % (Auto) [place] % (Auto) Eos % (Auto) Baso % (Auto) Neut # (Auto) Lymph # (Auto) [place] # (Auto) Eos # (Auto) Baso # (Auto) WBC Differential Differential Comment APTT 30.9 H Sodium 143 Potassium 4.1 Chloride 110 H Carbon Dioxide 27.4 Anion Gap 6 BUN 13 Creatinine 1.15 H Estimated GFR 48 L Random Glucose 66 L Calcium 7.3 L* Prot Corrected Calcium 8.7 Total Bilirubin 0.5 AST 20 ALT 15 Alkaline Phosphatase 131 H Total Protein 4.6 L Albumin 1.7 L Blood Type Blood Type Recheck Antibody Screen - Imaging Impressions Abdomen/Pelvis CT 02/06/18 00:00 CONCLUSION: 1. No acute abnormality seen. 2. Patient status post vertebroplasty at T11 and L1. There appears to be prominent posterior osteophytic ridging at the T12-L1 and L1-L2 disc levels is likely a chronic response secondary to prior fracture. 3. Small 5 mm hyperenhancing mass of the right lower lobe.. This is nonspecific. This can be followed with a CT or MRI examination 6 months. 4. Mild free fluid in the pelvis. 5. Small midline umbilical hernia containing mesenteric fat. Cervical Spine CT 02/06/18 00:00 CONCLUSION: 1. Acute fracture at the base of the C4 spinous process. 2. Suspected subtle fracturing at the anterior inferior right lateral aspect of the C7 vertebral body best seen on the coronal images. 3. Fracturing of the lateral aspect of the right T1 transverse process. 4. Degenerative change as described above. Chest CT 02/06/18 00:00 CONCLUSION: 1. Fracture of the superior aspect of the T5 vertebral body. There is mild concavity to the superior endplate of T5 sclerosis at the T5 vertebral body. 2. Acute fracturing at the right T1 transverse process. 3. Fracture with medial and lateral aspect of the right clavicle. 4. Fracturing of the anterior right third, fourth, sixth and seventh ribs. Head CT 02/06/18 08:16 CONCLUSION: 1. Small acute to subacute right-sided subdural hematoma with approximately 3 mm of separation along the right frontal/parietal lobe. 2. Fracture involving the posterior wall of left maxillary sinus with an air- fluid level. There also appears to be a nonspecific fracture involving the mid body of the left zygomatic arch. 3. Bilateral cortical atrophy and chronic white matter changes. . Face CT 02/06/18 09:38 CONCLUSION: 1. Left posterior lateral maxillary wall fractures with fluid in the maxillary sinus. 2. Nasal bone fractures. Chest X-Ray 02/06/18 10:29 CONCLUSION: 1. No acute cardiopulmonary disease. 3D Reconstruction 02/06/18 10:52 CONCLUSION: 1. 3-D images, as above. <Ferny Gates E - Last Filed: 02/06/18 17:37> Assessment and Plan (1) GI bleed Status: Acute Code(s): K92.2 - Gastrointestinal hemorrhage, unspecified - Plan This patient is a 62-year-old female with a past medical history that is significant for multiple sclerosis and depression. She presented to the emergency room last evening with report of hematemesis with bright red blood per rectum. Our service has been consulted to evaluate patient's report of bright red blood per rectum and hematemesis. Patient states that she had one episode of hematemesis along with 1 bloody diarrhea that did not appeared to have any stool present. She reports that this happened on Sunday morning. Of note, patient presented to [facility] and in [facility] for evaluation post fall. Patient presented with a complaint of left-sided headache, reports possible loss of consciousness. Patient was found to have fracture of the C7 and T1. Chest CT also showed fracture of T5, right clavicular fracture and fracture of the third fourth, sixth and seventh ribs. Patient states that she fell twice once on Sunday and then again on Sunday. She reports feeling dizzy which she states is not new based on her diagnosis of multiple sclerosis. Per patient, on Sunday morning she started to experience nausea with vomiting where she vomited bright red blood and had a bloody bowel movement. Patient denies being on any blood thinners or use of aspirin she denies any use of NSAIDs. Surgical history includes gastric bypass in 2013, hysterectomy, and cholecystectomy. Patient states that last EGD was done in 2013 where they found a small ulcer in her stomach. Patient is not on any type of antireflux medication or PPI. She states that she has had difficulty swallowing pills and solid foods for the past year denies any difficulty with liquids. Patient denies tobacco use but does report that she uses nicotine vapor. She also states that she drinks several beers each day and has been doing so for at least 10 years. GI bleed Bright red blood per rectum/hematemesis Hemoglobin 7.2 hematocrit 21.4. Patient reports history of gastric ulcer along with excessive EtOH consumption each day. Will need EGD for further evaluation when stable to do so. Plan -N.p.o. at this time -Monitor for bleeding -Please notify GI for any active noted bleeding -Transfuse if needed -Continue PPI -We will plan for EGD for further evaluation when patient stabilized -Supportive care -Further recommendations to follow based on patient status and findings This patient has been seen by myself and Dr. Gates and this note is written on his behalf - Attending Attestation Dr. Gates <Julieta Luther - Last Filed: 02/06/18 11:47> (1) GI bleed Status: Acute Code(s): K92.2 - Gastrointestinal hemorrhage, unspecified - Plan Patient seen and examined Agree with above Continue with current supportive care Monitor labs We will proceed with upper endoscopy tomorrow to further evaluate the GI bleed <Ferny Gates - Last Filed: 02/06/18 17:37> <Julieta Luther - Last Filed: 02/06/18 11:47> (1) GI bleed Qualifiers: GI bleed type/associated pathology: unspecified gastrointestinal hemorrhage type Qualified Code(s): K92.2 - Gastrointestinal hemorrhage, unspecified <Ferny Gates - Last Filed: 02/06/18 17:37> (1) GI bleed Qualifiers: GI bleed type/associated pathology: unspecified gastrointestinal hemorrhage type Qualified Code(s): K92.2 - Gastrointestinal hemorrhage, unspecified
[2018-02-06] MEDS: Multivitamin/Minerals Therapeutic Tablet PO SCH (12:02)
[2018-02-06] MEDS: Citalopram 20 MG Tablet PO SCH (12:02)
--- NOTE | 2018-02-06 12:07 | CT ---
EXAM DATE: 02/06/2018 9:49 AM EDT AGE/SEX: 62 years / Female INDICATIONS: Patient fell, bruising under left eye CLINICAL DATA: This is the patient's initial encounter. Patient reports that signs and symptoms have been present for 1 day and indicates a pain score of 5/10. MEDICAL/SURGICAL HISTORY: Multiple sclerosis. Hysterectomy. RADIATION DOSE: 29.28 CTDI (mGy) COMPARISON: No prior exams available for comparison. TECHNIQUE: Contiguous images in the axial and coronal planes were obtained using helical multirow de tector technique. Using automated exposure control and adjustment of the mA and/or kV according to p atient size, radiation dose was kept as low as reasonably achievable to obtain optimal diagnostic sunil lity images. DICOM format image data is available electronically for review and comparison. FINDINGS: Orbits: The orbital and infraorbital osseous structures are intact. The retroconal structures have a normal configuration. No radiopaque foreign bodies are seen. Nasal Bone: The nasal bone and maxillary spine are intact. Zygomatic Arches: Symmetric without evidence of fracture. Sinuses: Slightly displaced fracture of the left posterolateral maxillary wall. Fluid is noted in th e left maxillary sinus. Nasal Cavity: Left nasal bone fracture and very subtle right anterior nasal bone fracture. The nasal septum is intact and midline. The lacrimal ducts are intact. Soft Tissues: No radiopaque foreign bodies seen. Left periorbital soft tissue swelling. Intracranial: No intracranial air seen. Cribriform Plate: Grossly intact. CONCLUSION: 1. Left posterior lateral maxillary wall fractures with fluid in the maxillary sinus. 2. Nasal bone fractures. Electronically signed by: Doe Guerrero MD 02/06/2018 12:05 PM EDT
--- NOTE | 2018-02-06 12:14 | CT ---
EXAM DATE: 02/06/2018 11:36 AM EDT AGE/SEX: 62 years / Female INDICATIONS: Patient fell, bruising under right eye CLINICAL DATA: This is the patient's initial encounter. Patient reports that signs and symptoms have been present for 1 day and indicates a pain score of 4/10. MEDICAL/SURGICAL HISTORY: Multiple sclerosis. Hysterectomy. RADIATION DOSE: . CTDI (mGy) ; Reconstructed from previous dataset, no dose COMPARISON: [facility] [place], [place] [facility], 02/06/2018. . TECHNIQUE: Volumetric scanning was performed using a multi-row detector CT scanner during bolus infu am[place] of ml nonionic water-soluble contrast as a . The data was post processed with a variety of visu alization algorithms including full volume maximum intensity projection, multi-planar sliding thin sl ab reformation, curved planar reformation, and surface rendering techniques. Using automated exposur e control and adjustment of the mA and/or kV according to patient size, radiation dose was kept as lo w as reasonably achievable to obtain optimal diagnostic quality images. DICOM format image data is a vailable electronically for review and comparison. FINDINGS: 3D images demonstrate slightly comminuted nasal bone fracture. Patient's known posterior lateral left maxillary wall fracture is not as well demonstrated. CONCLUSION: 1. 3-D images, as above. Electronically signed by: Doe Guerrero MD 02/06/2018 12:12 PM EDT
--- NOTE | 2018-02-06 13:25 | P.CONNS ---
History of Present Illness Primary Care Provider: No Primary Care Physician History of Present Illness: 62-year-old female transferred from [facility] emergency room to [facility] for the evaluation of hematemesis and bright red blood per rectum. Apparently she is not very clear but may have fallen and hit her head and CT scan of the head obtained reveals a small subdural hemorrhage along with facial fractures. The patient complains of nausea and reports one episode of hematemesis followed by bloody diarrhea that happened yesterday morning. On arrival, the patient is noted to have ecchymoses surrounding the left eye and multiple bruises on her back. She complains of a left-sided headache. CT of the neck showed a C4 spinous process fracture, C7 vertebral body fracture and a fracture of the lateral aspect of the right T1 transverse process. Chest CT significant for chronic fracture of the T5 vertebral body, chronic T11 and L1 vertebrae fractures with kyphoplasty cement in plac,e right clavicular fracture and fracturing of the anterior third, fourth , sixth and seventh ribs. The patient reports that she fell twice, once on Sunday and once on Sunday. She reports that she felt dizzy which she attributes to her multiple sclerosis. She does not remember falling either time. She reports possible loss of consciousness on Sunday. She states the fall happened so fast she is unclear as to how she ended up on her back. She thinks she may have tumbled. She endorses drinking 2-3 beers nightly. She relates chronic unsteadiness from her multiple sclerosis. No fever/chills. Review of Systems Constitutional: Denies anorexia, Denies body ache(s), Denies chills, Denies daytime sleepiness, Denies excessive sweating, Denies fatigue, Denies fever(s), Denies headache(s), Denies increased appetite, Denies lack of energy, Denies malaise, Denies night sweats, Denies weakness, Denies weight gain, Denies weight loss, Denies other Eyes: Denies blind spots, Denies blurry vision, Denies bulging eyes, Denies change in vision, Denies double vision, Denies discharge, Denies dry eyes, Denies floaters, Denies irritation, Denies itchy eyes, Denies loss of vision, Denies pain, Denies requires corrective lenses, Denies sensitivity to light, Denies other Ears, Nose, Mouth, and Throat: Reports poor balance, Denies abnormal hearing, Denies bleeding gums, Denies bad breath, Denies change in voice, Denies dental pain, Denies difficulty swallowing, Denies dizziness, Denies dry mouth, Denies ear discharge, Denies ear pain, Denies facial pain, Denies headache(s), Denies hearing loss, Denies hoarseness, Denies lip swelling, Denies nosebleed, Denies mouth lesions, Denies mouth pain, Denies nasal congestion, Denies nasal discharge, Denies nasal obstruction, Denies nasal trauma, Denies neck lump, Denies neck pain, Denies nose pain, Denies pain with swallowing, Denies post nasal drip, Denies ringing in the ears, Denies sinus pain, Denies sinus pressure , Denies sore throat, Denies throat swelling, Denies tongue swelling, Denies other Cardiovascular: Denies chest pain, Denies chest pain at rest, Denies chest pain with activity, Denies excessive sweating, Denies fainting, Denies fast heart rate, Denies foot swelling, Denies generalized swelling, Denies irregular heart rhythm, Denies leg pain with activity, Denies leg sores, Denies leg swelling, Denies lightheadedness, Denies radiating jaw, neck or arm pain, Denies rapid, pounding, or irregular heartbeat, Denies shortness of breath, Denies shortness of breath with activity, Denies shortness of breath when lying down, Denies shortness of breath causing sudden awakening, Denies slow heart rate, Denies other Respiratory: Denies change in phlegm color, Denies chest congestion, Denies cough, Denies coughing up blood, Denies excessive phlegm production, Denies pain on inspiration, Denies pain with cough, Denies shortness of breath, Denies shortness of breath with activity, Denies snoring, Denies stridor, Denies wheezing, Denies other Gastrointestinal: Reports bright, red blood in stools, Reports loose stools, Reports nausea, Reports vomiting, Denies abdominal pain, Denies belching, Denies black, tarry stools, Denies bloating, Denies change in bowel habits, Denies constant urge to pass stool, Denies change in stools, Denies coffee ground vomit, Denies constipation, Denies cramping, Denies difficulty swallowing , Denies excessive passing of gas, Denies feeling full early, Denies heartburn, Denies incontinent of stools, Denies pain with swallowing, Denies vomiting blood , Denies other Genitourinary: Denies abnormal periods, Denies abnormal vaginal bleeding, Denies absent period, Denies bleeding between periods, Denies blood in urine, Denies difficulty starting urination, Denies difficulty urinating, Denies dribbling after urination, Denies frequent nighttime urination, Denies genital itching, Denies genital lesions, Denies heavy periods, Denies hot flashes, Denies light periods, Denies nipple discharge, Denies painful intercourse, Denies painful periods, Denies painful urination, Denies pelvic pain, Denies prolapse symptoms, Denies sexual problems, Denies side pain, Denies urinary incontinence, Denies urinary urgency, Denies vaginal discharge, Denies vaginal dryness, Denies vaginal odor, Denies vaginal itching, Denies other Musculoskeletal: Reports abnormal walking, Reports joint pain (Chronic bilateral shoulder pain and limited range of motion), Denies back pain, Denies body aches, Denies decreased muscle mass, Denies deformity, Denies joint swelling, Denies limited joint movement, Denies loss of height, Denies muscle cramps, Denies muscle weakness, Denies neck pain, Denies numbness, Denies radiating pain into limb, Denies stiffness, Denies tingling, Denies other Skin/Breast: Reports bleeding lesions, Denies acne, Denies boil, Denies breast swelling, Denies breast skin changes, Denies breast pain, Denies breast lump, Denies change in breast shape, Denies change in hair, Denies change in skin color, Denies changing lesions, Denies dry skin, Denies excessive hair growth, Denies hair loss, Denies itching, Denies lesions, Denies nail changes, Denies new lesions, Denies nipple discharge, Denies non-healing lesions, Denies redness , Denies sensitivity to light, Denies rash, Denies skin pain, Denies skin ulcer , Denies sores, Denies stretch diane, Denies unusual bruising, Denies wounds, Denies yellowing of the skin, Denies other Neurologic: Reports abnormal walking, Reports frequent falls, Reports unsteadiness, Denies abnormal hearing, Denies abnormal movements, Denies abnormal speech, Denies behavioral changes, Denies burning sensations, Denies confusion, Denies dizziness, Denies fainting, Denies headache(s), Denies lack of coordination, Denies localized weakness, Denies loss of vision, Denies memory loss, Denies numbness, Denies other visual disturbances, Denies radiating pain, Denies restless legs, Denies convulsions, Denies seizure-like activity, Denies sensory deficit, Denies tingling, Denies tingling/numbness/ burning sensations, Denies tremor(s), Denies weakness, Denies other Psychiatric: Denies abnormal sleep pattern, Denies anxiety, Denies behavioral changes, Denies change in appetite, Denies change in sex drive, Denies confusion , Denies depression, Denies difficulty concentrating, Denies hearing things others do not hear, Denies hopelessness, Denies irritability, Denies lack of enjoyment, Denies memory loss, Denies mood swings, Denies panic attacks, Denies paranoia, Denies seeing things others do not see, Denies sensing things others do not sense, Denies tactile hallucinations, Denies thoughts of hurting/killing others, Denies thoughts of hurting/killing yourself, Denies other Endocrine: Denies cold intolerance, Denies excessive sweating, Denies flushing, Denies heat intolerance, Denies increased hunger, Denies increased thirst, Denies increased urination, Denies rapid, pounding, or irregular heartbeat, Denies other Hematologic/Lymphatic: Reports easy bleeding, Reports easy bruising, Denies enlarged lymph nodes, Denies other Allergic/Immunologic: Denies GI upset with certain foods, Denies hives, Denies itchy eyes, Denies lip swelling, Denies seasonal runny nose, Denies throat swelling, Denies tongue swelling, Denies wheezing, Denies other PMFSH - History History Provided By: Patient, [employer] Sales Representative / EMT - Medical History Medical History: Medical History (Last Reviewed 02/06/18 @ 13:19 by Tristan Martinez MD) Depression H/O: hysterectomy Multiple sclerosis - Surgical History Surgical History: Surgical History (Last Reviewed 02/06/18 @ 13:19 by Tristan Martinez MD) H/O gastric bypass History of cholecystectomy - Family History Family History: Family History (Last Reviewed 02/06/18 @ 13:19 by Tristan Martinez MD) Other CHF (congestive heart failure) Cirrhosis Diabetes mellitus - Tobacco History Tobacco Use In Past 30 Days: No Smoking Status: Current every day smoker Tobacco Type: E-Cigarettes - Alcohol History How Often Do You Have a Drink Containing Alcohol: 4 or more times a week - Travel History Recent Travel in the [place] Within the Last 8 Weeks: No Recent Travel Out of the Country Within the Last 8 Weeks: No - Immunization History Tetanus Immunization: <5 Years Medications and Allergies Active Medications: Active Medications Acetaminophen (Tylenol Liq) 650 mg PO Q4H PRN PRN Reason: FEVER > 101 F Albuterol (Duoneb Neb (Rohit)) 1 ampul NEB Q6HR NEB [facility] Last Admin: 02/06/18 12:11 Dose: 1 ampul Albuterol (Duoneb Neb (Prn)) 1 ampul NEB Q2HR NEB PRN PRN Reason: SHORTNESS OF BREATH Citalopram Hydrobromide (Celexa) 10 mg PO DAILY [facility] Last Admin: 02/06/18 12:02 Dose: Not Given Flumazenil (Romazecon Inj) 0.2 mg IV.PUSH Q1M PRN PRN Reason: OVERSEDATION Folic Acid (Folic Acid) 1 mg PO DAILY [facility] Stop: 02/11/18 08:59 Last Admin: 02/06/18 10:54 Dose: Not Given Haloperidol Lactate (Haldol Inj) 1 mg IV.PUSH Q15M PRN PRN Reason: for severe agitation Sodium Chloride (Ns Inj) 1,000 mls @ 70 mls/hr IV.CONT .[id number] [facility] Last Admin: 02/06/18 02:49 Dose: 70 mls/hr Lamotrigine (Lamictal) 200 mg PO BID [facility] Last Admin: 02/06/18 10:53 Dose: Not Given Lidocaine HCl (Lidoderm 5% Patch.12 Hr) 1 patch T-DERMAL DAILY [facility] Lorazepam (Ativan) 2 mg PO Q2H PRN PRN Reason: for CIWA 11-14 Lorazepam (Ativan Inj) 2 mg IV.PUSH Q2H PRN PRN Reason: for CIWA 11-14 Lorazepam (Ativan Inj) 2 mg IV.PUSH Q1H PRN PRN Reason: for CIWA 15-20 Lorazepam (Ativan Inj) 2 mg IV.PUSH Q15M PRN PRN Reason: for CIWA > 20 Lorazepam (Ativan Inj) 1 mg IV.PUSH Q4H PRN PRN Reason: for CIWA 8-10 Lorazepam (Ativan) 1 mg PO Q4H PRN PRN Reason: for CIWA 8-10 Morphine Sulfate (Morphine Inj) 2 mg IV.PUSH Q4H PRN PRN Reason: pain 6-10 Multivitamins/Minerals (Theragran-M) 1 tab PO DAILY [facility] Stop: 02/11/18 08:59 Last Admin: 02/06/18 12:02 Dose: Not Given Pantoprazole Sodium (Protonix Inj) 40 mg IV.PUSH BID [facility] Last Admin: 02/06/18 10:30 Dose: 40 mg Patch Removal (Remove Old Patch) 1 each T-DERMAL HS [facility] Sodium Chloride (Ns Flush) 2 ml IV.FLUSH BID [facility] Last Admin: 02/06/18 10:53 Dose: Not Given Sodium Chloride (Ns Flush) 2 ml IV.FLUSH PRN PRN PRN Reason: FLUSH AFTER USING IV ACCESS Thiamine HCl (Vitamin B1) 100 mg PO DAILY [facility] Last Admin: 02/06/18 12:03 Dose: Not Given Allergies Allergy/AdvReac Type Severity Reaction Status Date / Time No Known Allergies Allergy Verified 02/05/18 23:19 Home Medications Medication Instructions Recorded Confirmed Type citalopram 10 mg PO DAILY 02/05/18 02/05/18 History clonazepam 0.5 mg PO BID 02/05/18 02/05/18 History lamotrigine 200 mg PO BID 02/05/18 02/05/18 History Exam Vital signs: Vital Signs 02/05/18 23:20 02/06/18 06:01 02/06/18 08:00 Temperature 97.9 F Pulse Rate 99 H 78 63 Respiratory Rate 18 16 16 Blood Pressure 132/78 105/62 112/58 L Pulse Oximetry 98 99 96 02/06/18 10:35 02/06/18 12:12 Temperature Pulse Rate 81 74 Respiratory Rate 14 18 Blood Pressure 126/59 L Pulse Oximetry 95 98 Intake & Output 02/05/18 02/06/18 02/06/18 18:59 06:59 18:59 Output Total 300 / 300 Balance -300 / -300 Weight 45 kg Output: Urine 300 / 300 - Constitutional no acute distress - Routine HEENT Exam Head: Present: abrasion, laceration, hematoma Eye: Present: EOMI, PERRL ENT: Present: mucous membranes moist, oropharynx clear, external ear normal - Routine Neck Exam Present: supple, trachea midline, trauma (Grindstone J cervical collar in place) - Routine Respiratory Exam Present: CTA bilaterally - Routine Cardiovascular Exam Present: RRR, S1, S2 - Routine Abdominal Exam Present: soft, normoactive bowel sounds - Routine Extremities Exam Present: full ROM (Limited range of motion of bilateral shoulders which is chronic) - Routine Skin Exam Present: ecchymosis - Routine Neurological Exam Present: oriented X3, CN II-XII intact, plantar reflex, moving all extremities, normal speech Results - Laboratory Findings CBC and BMP: 02/06/18 11:38 02/06/18 10:45 Abnormal lab findings: Abnormal Labs 02/06/18 02/06/18 02/06/18 03:21 10:45 10:45 WBC 3.8 L RBC 2.04 L Hgb 7.3 L 7.2 L Hct 22.1 L 21.4 L MCV 104.9 H MCH 35.3 H [place] % (Auto) 9.4 H Lymph # (Auto) 0.9 L APTT Chloride 110 H Creatinine 1.15 H Estimated GFR 48 L Random Glucose 66 L Calcium 7.3 L* Alkaline Phosphatase 131 H Total Protein 4.6 L Albumin 1.7 L 02/06/18 02/06/18 11:38 12:00 WBC RBC Hgb 7.6 L Hct 22.4 L MCV MCH [place] % (Auto) Lymph # (Auto) APTT 30.9 H Chloride Creatinine Estimated GFR Random Glucose Calcium Alkaline Phosphatase Total Protein Albumin - Diagnostic Findings Additional findings: Impressions Abdomen/Pelvis CT 02/06/18 00:00 CONCLUSION: 1. No acute abnormality seen. 2. Patient status post vertebroplasty at T11 and L1. There appears to be prominent posterior osteophytic ridging at the T12-L1 and L1-L2 disc levels is likely a chronic response secondary to prior fracture. 3. Small 5 mm hyperenhancing mass of the right lower lobe.. This is nonspecific. This can be followed with a CT or MRI examination 6 months. 4. Mild free fluid in the pelvis. 5. Small midline umbilical hernia containing mesenteric fat. Cervical Spine CT 02/06/18 00:00 CONCLUSION: 1. Acute fracture at the base of the C4 spinous process. 2. Suspected subtle fracturing at the anterior inferior right lateral aspect of the C7 vertebral body best seen on the coronal images. 3. Fracturing of the lateral aspect of the right T1 transverse process. 4. Degenerative change as described above. Chest CT 02/06/18 00:00 CONCLUSION: 1. Fracture of the superior aspect of the T5 vertebral body. There is mild concavity to the superior endplate of T5 sclerosis at the T5 vertebral body. 2. Acute fracturing at the right T1 transverse process. 3. Fracture with medial and lateral aspect of the right clavicle. 4. Fracturing of the anterior right third, fourth, sixth and seventh ribs. Head CT 02/06/18 08:16 CONCLUSION: 1. Small acute to subacute right-sided subdural hematoma with approximately 3 mm of separation along the right frontal/parietal lobe. 2. Fracture involving the posterior wall of left maxillary sinus with an air- fluid level. There also appears to be a nonspecific fracture involving the mid body of the left zygomatic arch. 3. Bilateral cortical atrophy and chronic white matter changes. . Face CT 02/06/18 09:38 CONCLUSION: 1. Left posterior lateral maxillary wall fractures with fluid in the maxillary sinus. 2. Nasal bone fractures. Chest X-Ray 02/06/18 10:29 CONCLUSION: 1. No acute cardiopulmonary disease. 3D Reconstruction 02/06/18 10:52 CONCLUSION: 1. 3-D images, as above. Assessment and Plan - Assessment (1) Acute subdural hematoma Code(s): S06.5X9A - Traumatic subdural hemorrhage with loss of consciousness of unspecified duration, initial encounter Status: Acute (2) Closed cervical spine fracture Code(s): S12.9XXA - Fracture of neck, unspecified, initial encounter Status: Acute (3) Cranial facial fractures Code(s): S02.91XA - Unspecified fracture of skull, initial encounter for closed fracture; S02.92XA - Unspecified fracture of facial bones, initial encounter for closed fracture Status: Acute - Plan 62-year-old lady with a small right subdural hemorrhage after a fall related to likely syncopal episode from GI bleeding. She has C4 spinous process and right C7 nondisplaced vertebral body fractures. She also has chronic T5 vertebral body fracture as well as a history of T11 and L1 compression fractures with kyphoplasty. Follow-up CT scan of the head is stable. Recommend nonsurgical management of a small subdural hemorrhage as well as a Grindstone J collar for the cervical fractures. Increase activity and diet as per gastroenterology. (2) Closed cervical spine fracture Qualifiers: Cervical vertebra fracture level: C7 Fracture morphology: other fracture Fracture alignment: nondisplaced
[2018-02-06] MEDS: Lidocaine 5% Patch T-DERMAL SCH ×2 (15:30→18:47)
[2018-02-06] MEDS: Morphine Inj 4 MG/ML Vial IV.PUSH PRN ×2 (15:32→21:59)
--- NOTE | 2018-02-06 15:37 | ECHRPT ---
Indication: CONCLUSIONS The left ventricular systolic function is normal with an estimated ejection fraction in the range of 55-60%. Doppler parameters are consistent with impaired left ventricular relaxtion (grade 1 diastolic dysfun ction). Trace mitral valve regurgitation. There is trace tricuspid valve regurgitation. BP: / HR: Rhythm: Technical Quality: FINDINGS LEFT VENTRICLE Normal left ventricular size. Wall thickness is normal. The left ventricular systolic function is normal with an estimated ejection fraction in the range of 55-60%. No regional wall motion abnormalities are present. Doppler parameters are consistent with impaired left ventricular relaxtion (grade 1 diastolic dysfun ction). RIGHT VENTRICLE Normal right ventricular size and systolic function. LEFT ATRIUM The left atrial size is normal. RIGHT ATRIUM The right atrial size is normal. ATRIAL SEPTUM Normal atrial septal thickness without atrial level shunting by limited color doppler interrogation. AORTA The aortic root and proximal ascending aorta are normal in size on limited imaging. MITRAL VALVE Structurally normal mitral valve. Trace mitral valve regurgitation. No mitral valve stenosis. AORTIC VALVE Probable trileaflet aortic valve. No aortic valve stenosis or regurgitation. TRICUSPID VALVE Structurally normal tricuspid valve. There is trace tricuspid valve regurgitation. No tricuspid valve stenosis. PULMONARY VALVE The pulmonary valve is not well visualized. VESSELS The inferior vena cava is normal in size. PERICARDIUM No pericardial effusion. Markell Nguyễn DO (Electronically Signed) Final Date:06 February 2018 14:16
--- NOTE | 2018-02-06 20:29 | P.CON ---
History of Present Illness Service: Plastic surgery Consult date: 02/06/18 Primary Care Provider: No Primary Care Physician Chief Complaint: Left maxillary sinus fracture History of Present Illness: History obtained from chart and patient 62-year-old female with a past medical history significant for multiple sclerosis and depression presents to the emergency department for the evaluation of hematemesis and bright red blood per rectum. The patient reports one episode of hematemesis followed by bloody diarrhea that happened yesterday morning. She presented to [facility] for evaluation. Evaluation in [facility] revealed a small subdural hematoma and left-sided facial bone fractures. The patient was transferred to [facility] for further evaluation. On arrival, the patient is noted to have ecchymoses surrounding the left eye and multiple bruises on her back. She complains of a left-sided headache. CT of the neck showed a C7 vertebral body fracture and a fracture of the lateral aspect of the right T1 transverse process. Chest CT significant for fracture of the T5 vertebral body, right clavicular fracture and fracturing of the anterior third, fourth, sixth and seventh ribs. The patient reports that she fell twice, once on Sunday and once on Sunday. She reports that she felt dizzy which she attributes to her multiple sclerosis. She does not remember falling either time. She reports possible loss of consciousness on Sunday. She states the fall happened so fast she is unclear as to how she ended up on her back. She thinks she may have tumbled. She endorses drinking 2-3 beers nightly. She denies any chest pain. No abdominal pain. No lateralizing signs/symptoms. No fever/chills. Currently patient denies changes in vision/bite. She endorses mild left facial pain. She denies numbness tingling except for her left cheek. Patient endorses previous nasal fracture due to fall many months ago with significant deviation. She denies current nasal pain Review of Systems All other systems reviewed negative except as stated in HPI PMFSH - History History Provided By: Deportation Officer / EMT - Medical History Medical History: Medical History (Last Updated 02/06/18 @ 02:24 by Tatum Burnett MD) Depression H/O: hysterectomy Multiple sclerosis - Surgical History Surgical History: Surgical History (Last Reviewed 02/06/18 @ 02:24 by Tatum Burnett MD) H/O gastric bypass History of cholecystectomy - Family History Family History: Family History (Last Updated 02/06/18 @ 02:25 by Tatum Burnett MD) Other CHF (congestive heart failure) Cirrhosis Diabetes mellitus - Tobacco History Tobacco Use In Past 30 Days: No Smoking Status: Current every day smoker Tobacco Type: E-Cigarettes - Alcohol History How Often Do You Have a Drink Containing Alcohol: 4 or more times a week - Travel History Recent Travel in the [place] Within the Last 8 Weeks: No Recent Travel Out of the Country Within the Last 8 Weeks: No - Immunization History Tetanus Immunization: <5 Years Medication list reviewed PMFSH - History History Provided By: Patient, Deportation Officer / EMT - Medical History Medical History: Medical History (Last Reviewed 02/06/18 @ 13:19 by Tristan Martinez MD) Depression H/O: hysterectomy Multiple sclerosis - Surgical History Surgical History: Surgical History (Last Reviewed 02/06/18 @ 13:19 by Tristan Martinez MD) H/O gastric bypass History of cholecystectomy - Family History Family History: Family History (Last Reviewed 02/06/18 @ 13:19 by Tristan Martinez MD) Other CHF (congestive heart failure) Cirrhosis Diabetes mellitus - Tobacco History Second Hand Smoke Exposure: Yes Tobacco Use In Past 30 Days: No Smoking Status: Current every day smoker Tobacco Type: E-Cigarettes - Alcohol History How Often Do You Have a Drink Containing Alcohol: 4 or more times a week - Substance Use History Substance History: No History of Abuse - Travel History Recent Travel in the [place] Within the Last 8 Weeks: No Recent Travel Out of the Country Within the Last 8 Weeks: No - Immunization History Tetanus Immunization: <5 Years Medications and Allergies Active Medications: Active Medications Acetaminophen (Tylenol Liq) 650 mg PO Q4H PRN PRN Reason: FEVER > 101 F Albuterol (Duoneb Neb (Rohit)) 1 ampul NEB Q6HR NEB ROHIT Last Admin: 02/06/18 16:22 Dose: 1 ampul Albuterol (Duoneb Neb (Prn)) 1 ampul NEB Q2HR NEB PRN PRN Reason: SHORTNESS OF BREATH Citalopram Hydrobromide (Celexa) 10 mg PO DAILY ROHIT Last Admin: 02/06/18 12:02 Dose: Not Given Flumazenil (Romazecon Inj) 0.2 mg IV.PUSH Q1M PRN PRN Reason: OVERSEDATION Folic Acid (Folic Acid) 1 mg PO DAILY [facility] Stop: 02/11/18 08:59 Last Admin: 02/06/18 10:54 Dose: Not Given Haloperidol Lactate (Haldol Inj) 1 mg IV.PUSH Q15M PRN PRN Reason: for severe agitation Sodium Chloride (Ns Inj) 1,000 mls @ 70 mls/hr IV.CONT .[id number] [facility] Last Admin: 02/06/18 18:36 Dose: 70 mls/hr Lamotrigine (Lamictal) 200 mg PO BID [facility] Last Admin: 02/06/18 10:53 Dose: Not Given Lidocaine HCl (Lidoderm 5% Patch.12 Hr) 1 patch T-DERMAL DAILY [facility] Last Admin: 02/06/18 18:47 Dose: Not Given Lorazepam (Ativan) 2 mg PO Q2H PRN PRN Reason: for CIWA 11-14 Lorazepam (Ativan Inj) 2 mg IV.PUSH Q2H PRN PRN Reason: for CIWA 11-14 Lorazepam (Ativan Inj) 2 mg IV.PUSH Q1H PRN PRN Reason: for CIWA 15-20 Lorazepam (Ativan Inj) 2 mg IV.PUSH Q15M PRN PRN Reason: for CIWA > 20 Lorazepam (Ativan Inj) 1 mg IV.PUSH Q4H PRN PRN Reason: for CIWA 8-10 Lorazepam (Ativan) 1 mg PO Q4H PRN PRN Reason: for CIWA 8-10 Morphine Sulfate (Morphine Inj) 2 mg IV.PUSH Q4H PRN PRN Reason: pain 6-10 Last Admin: 02/06/18 15:32 Dose: 2 mg Multivitamins/Minerals (Theragran-M) 1 tab PO DAILY [facility] Stop: 02/11/18 08:59 Last Admin: 02/06/18 12:02 Dose: Not Given Pantoprazole Sodium (Protonix Inj) 40 mg IV.PUSH BID [facility] Last Admin: 02/06/18 10:30 Dose: 40 mg Patch Removal (Remove Old Patch) 1 each T-DERMAL HS [facility] Sodium Chloride (Ns Flush) 2 ml IV.FLUSH BID [facility] Last Admin: 02/06/18 10:53 Dose: Not Given Sodium Chloride (Ns Flush) 2 ml IV.FLUSH PRN PRN PRN Reason: FLUSH AFTER USING IV ACCESS Thiamine HCl (Vitamin B1) 100 mg PO DAILY [facility] Last Admin: 02/06/18 12:03 Dose: Not Given Allergies Allergy/AdvReac Type Severity Reaction Status Date / Time No Known Allergies Allergy Verified 02/05/18 23:19 Home Medications Medication Instructions Recorded Confirmed Type citalopram 10 mg PO DAILY 02/05/18 02/05/18 History clonazepam 0.5 mg PO BID 02/05/18 02/05/18 History lamotrigine 200 mg PO BID 02/05/18 02/05/18 History Physical Exam Vital signs: Vital Signs 02/05/18 23:20 02/06/18 06:01 02/06/18 08:00 Temperature 97.9 F Pulse Rate 99 H 78 63 Respiratory Rate 18 16 16 Blood Pressure 132/78 105/62 112/58 L Pulse Oximetry 98 99 96 02/06/18 10:35 02/06/18 12:12 02/06/18 13:47 Temperature Pulse Rate 81 74 76 Respiratory Rate 14 18 14 Blood Pressure 126/59 L 114/58 L Pulse Oximetry 95 98 98 02/06/18 14:09 02/06/18 16:00 02/06/18 16:25 Temperature 97.8 F 98.5 F Pulse Rate 73 78 78 Respiratory Rate 17 17 18 Blood Pressure 116/56 L 107/56 L Pulse Oximetry 98 92 L 92 L Intake & Output 02/06/18 02/06/18 02/07/18 06:59 18:59 06:59 Intake Total 1000 / 1000 Output Total 300 / 300 Balance -300 / -300 1000 / 1000 Weight 45 kg Intake: IV 1000 / 1000 NS Inj 1,000 ML @ 70 mls/hr IV. 1000 / 1000 CONT .[id number] [facility] Rx#:[id number] Oral 0 / 0 Output: Urine 300 / 300 Other: # Voids 1 Narrative: No apparent anxiety moist mucous membranes PERRLA skin without rash respirations nonlabored moves all 4 extremities to command digits warm well perfused Cranial nerves intact by exam Extraocular muscles intact and without restriction Left facial ecchymosis/edema V1 to V3 intact and symmetric except for diminished left V2 No step-offs appreciated Nasal bones nontender to firm palpation Maxillofacial CT images personally reviewed by me showing old nasal fracture and left lateral wall maxillary sinus fracture Assessment and Plan - Assessment (1) Maxillary sinus fracture Code(s): S02.401A - Maxillary fracture, unspecified side, initial encounter for closed fracture Status: Acute - Plan 62-year-old female status post fall with left maxillary sinus fracture Nasal fracture appears to be old Risk benefits and alternative treatments discussed All questions answered and the patient expressed understanding Patient elected to assume the risks of nonoperative treatment of the above fracture No nose blowing Please call with questions
[2018-02-06 21:20] LABS: Hematocrit 21.1 % (35.0-46.0)
[2018-02-06 21:33] LABS: Hemoglobin 6.9 gm/dL (11.6-15.3)
[2018-02-07] MEDS ORDERED: Chlorhexidine Gluconate 2% 1 Pack (2 Cloths) TOPICAL ONE (02:02)
[2018-02-07] MEDS ORDERED: Metoprolol Tartrate 25 MG Tablet PO ONE (02:02)
[2018-02-07] MEDS ORDERED: Sodium Chlor 0.9% Inj 500 ML IV.SIG SCH (03:00)
[2018-02-07] MEDS: Morphine Inj 4 MG/ML Vial IV.PUSH PRN ×4 (04:40→20:08)
[2018-02-07] MEDS: Sod Chloride 0.9% Inj 1,000 ML IV.CONT SCH ×3 (07:47→23:27)
--- NOTE | 2018-02-07 09:33 | P.PNNS ---
Subjective Interval history: Pt awake and alert and oriented. Denies headache, no neck pain, radiculopathy or paresthesias in the UEs. <Andrew Rodriguez - Last Filed: 02/07/18 09:26> Physical Exam Vital signs: Vital Signs 02/06/18 10:35 02/06/18 12:12 02/06/18 13:47 Temperature Pulse Rate 81 74 76 Respiratory Rate 14 18 14 Blood Pressure 126/59 L 114/58 L Pulse Oximetry 95 98 98 02/06/18 14:09 02/06/18 16:00 02/06/18 16:25 Temperature 97.8 F 98.5 F Pulse Rate 73 78 78 Respiratory Rate 17 17 18 Blood Pressure 116/56 L 107/56 L Pulse Oximetry 98 92 L 92 L 02/06/18 20:00 02/06/18 22:00 02/07/18 00:00 Temperature 97.4 F L 98.1 F 97.4 F L Pulse Rate 84 79 76 Respiratory Rate 15 16 17 Blood Pressure 95/58 L 114/55 L 122/58 L Pulse Oximetry 97 97 96 02/07/18 01:29 02/07/18 01:49 02/07/18 03:20 Temperature 98.3 F 98.3 F 98.1 F Pulse Rate 76 72 69 Respiratory Rate 20 20 20 Blood Pressure 117/55 L 113/56 L 123/59 L Pulse Oximetry 96 96 02/07/18 03:42 02/07/18 04:15 02/07/18 04:47 Temperature 97.6 F 97.9 F Pulse Rate 57 L 72 91 H Respiratory Rate 18 20 18 Blood Pressure 117/82 112/78 Pulse Oximetry 96 96 02/07/18 07:46 02/07/18 07:47 02/07/18 08:00 Temperature 98.1 F Pulse Rate 82 Respiratory Rate 17 20 Blood Pressure 105/53 L Pulse Oximetry 94 L 97 02/07/18 09:00 Temperature Pulse Rate 84 Respiratory Rate 12 Blood Pressure Pulse Oximetry Intake & Output 02/06/18 02/07/18 02/07/18 18:59 06:59 18:59 Intake Total 1000 / 1000 1440 / 1440 Output Total 700 / 700 Balance 1000 / 1000 1440 / 1440 -700 / -700 Weight 45 kg Intake: IV 1000 / 1000 NS Inj 1,000 ML @ 70 mls/hr IV. 1000 / 1000 CONT .[id number] [facility] Rx#:[id number] Oral 0 / 0 240 / 240 Other 400 / 400 Rbc As-3 Leukoreduced Unit 400 / 400 [id number] Intake (Blood Product) Amt 800 / 800 Rbc As-3 Leukoreduced Unit 400 / 400 [id number] Rbc As-3 Leukoreduced Unit 400 / 400 [id number] Output: Urine 700 / 700 Other: # Voids 1 2 - Constitutional no acute distress - Routine HEENT Exam Head: Absent: atraumatic (facial ecchymosis.) Eye: Present: PERRL (4mm bilaterally reactive bilaterally.). Absent: conjunctival icterus - Routine Neck Exam Absent: full ROM ([place] J cervical collar in place.) - Routine Respiratory Exam Present: CTA bilaterally. Absent: respiratory distress, rhonchi, wheezes - Routine Cardiovascular Exam Present: RRR, S1, S2. Absent: murmur - Routine Abdominal Exam Present: soft, normoactive bowel sounds. Absent: distended, firm - Routine Skin Exam Present: ecchymosis (face.). Absent: cyanosis, erythema - Routine Neurological Exam Present: alert, oriented X3, moving all extremities, normal speech. Absent: sensory deficit, motor deficit, altered mental status - Detailed Neurological Exam: Coma Scale Eye Opening: Spontaneous Verbal Response: Oriented Motor Response: Obey commands [place] Coma Scale Total: 15 - Routine Psychiatric Exam Present: normal affect, cooperative. Absent: anxious, agitated <Andrew Rodriguez - Last Filed: 02/07/18 09:26> Vital signs: Vital Signs 02/06/18 12:12 02/06/18 13:47 02/06/18 14:09 Temperature 97.8 F Pulse Rate 74 76 73 Respiratory Rate 18 14 17 Blood Pressure 114/58 L 116/56 L Pulse Oximetry 98 98 98 02/06/18 16:00 02/06/18 16:25 02/06/18 20:00 Temperature 98.5 F 97.4 F L Pulse Rate 78 78 84 Respiratory Rate 17 18 15 Blood Pressure 107/56 L 95/58 L Pulse Oximetry 92 L 92 L 97 02/06/18 22:00 02/07/18 00:00 02/07/18 01:29 Temperature 98.1 F 97.4 F L 98.3 F Pulse Rate 79 76 76 Respiratory Rate 16 17 20 Blood Pressure 114/55 L 122/58 L 117/55 L Pulse Oximetry 97 96 96 02/07/18 01:49 02/07/18 03:20 02/07/18 03:42 Temperature 98.3 F 98.1 F Pulse Rate 72 69 57 L Respiratory Rate 20 20 18 Blood Pressure 113/56 L 123/59 L Pulse Oximetry 96 02/07/18 04:15 02/07/18 04:47 02/07/18 07:46 Temperature 97.6 F 97.9 F 98.1 F Pulse Rate 72 91 H 82 Respiratory Rate 20 18 17 Blood Pressure 117/82 112/78 105/53 L Pulse Oximetry 96 96 94 L 02/07/18 07:47 02/07/18 08:00 02/07/18 09:00 Temperature Pulse Rate 84 Respiratory Rate 20 12 Blood Pressure Pulse Oximetry 97 Intake & Output 02/06/18 02/07/18 02/07/18 18:59 06:59 18:59 Intake Total 1000 / 1000 1440 / 1440 Output Total 700 / 700 Balance 1000 / 1000 1440 / 1440 -700 / -700 Weight 45 kg Intake: IV 1000 / 1000 NS Inj 1,000 ML @ 70 mls/hr IV. 1000 / 1000 CONT .[id number] [facility] Rx#:[id number] Oral 0 / 0 240 / 240 Other 400 / 400 Rbc As-3 Leukoreduced Unit 400 / 400 [id number] Intake (Blood Product) Amt 800 / 800 Rbc As-3 Leukoreduced Unit 400 / 400 [id number] Rbc As-3 Leukoreduced Unit 400 / 400 [id number] Output: Urine 700 / 700 Other: # Voids 1 2 <Tristan Martinez - Last Filed: 02/07/18 12:06> Assessment and Plan - Assessment (1) Acute subdural hematoma Code(s): S06.5X9A - Traumatic subdural hemorrhage with loss of consciousness of unspecified duration, initial encounter Status: Acute (2) Closed cervical spine fracture Code(s): S12.9XXA - Fracture of neck, unspecified, initial encounter Status: Acute Qualifiers: Cervical vertebra fracture level: C7 Fracture morphology: other fracture Fracture alignment: nondisplaced (3) Cranial facial fractures Code(s): S02.91XA - Unspecified fracture of skull, initial encounter for closed fracture; S02.92XA - Unspecified fracture of facial bones, initial encounter for closed fracture Status: Acute (4) GI bleed Code(s): K92.2 - Gastrointestinal hemorrhage, unspecified Status: Acute Qualifiers: GI bleed type/associated pathology: unspecified gastrointestinal hemorrhage type Qualified Code(s): K92.2 - Gastrointestinal hemorrhage, unspecified (5) Maxillary sinus fracture Code(s): S02.401A - Maxillary fracture, unspecified side, initial encounter for closed fracture Status: Acute - Plan 62-year-old lady with a small right subdural hemorrhage after a fall related to likely syncopal episode from GI bleeding. She has C4 spinous process and right C7 nondisplaced vertebral body fractures. She also has chronic T5 vertebral body fracture as well as a history of T11 and L1 compression fractures with kyphoplasty. Follow-up CT scan of the head is stable. Continue with nonsurgical management of her small subdural hemorrhage as well as a [place] J collar for the cervical fractures. Increase activity and diet as per gastroenterology. Continue with medical treatment. <Andrew Rodriguez - Last Filed: 02/07/18 09:26> - Assessment (1) Acute subdural hematoma Code(s): S06.5X9A - Traumatic subdural hemorrhage with loss of consciousness of unspecified duration, initial encounter Status: Acute (2) Closed cervical spine fracture Code(s): S12.9XXA - Fracture of neck, unspecified, initial encounter Status: Acute Qualifiers: Cervical vertebra fracture level: C7 Fracture morphology: other fracture Fracture alignment: nondisplaced (3) Cranial facial fractures Code(s): S02.91XA - Unspecified fracture of skull, initial encounter for closed fracture; S02.92XA - Unspecified fracture of facial bones, initial encounter for closed fracture Status: Acute - Attending Attestation The exam, history, and the medical decision-making described in the above note were completed with the assistance of the mid-level provider. I reviewed and agree with the findings presented. I attest that I had a [id number] encounter with the patient on the same day, and personally performed and documented my assessment and findings in the medical record. <Tristan Martinez - Last Filed: 02/07/18 12:06>
[2018-02-07 09:36] LABS: INR 1.2 Ratio; Prothrombin Time 12.3 sec (9.8-11.6)
[2018-02-07] MEDS: Pantoprazole Inj 40 MG Vial IV.PUSH SCH ×2 (09:39→20:07)
[2018-02-07] MEDS: Lidocaine 5% Patch T-DERMAL SCH (09:44)
[2018-02-07] MEDS: Folic Acid 1 MG Tablet PO SCH (09:44)
[2018-02-07] MEDS: lamoTRIgine 100 MG Tablet PO SCH ×2 (09:44→20:07)
[2018-02-07] MEDS: Citalopram 20 MG Tablet PO SCH (09:45)
[2018-02-07] MEDS: Multivitamin/Minerals Therapeutic Tablet PO SCH (09:45)
[2018-02-07 10:58] LABS: Baso % (Auto) 0.8 % (0.0-2.0); Eos # (Auto) 0.1 th/mm3 (0.0-0.4); Eos % (Auto) 3.7 % (0.0-4.0); Hematocrit 29.9 % (35.0-46.0); Hemoglobin 10.1 gm/dL (11.6-15.3); Lymph % (Auto) 29.8 % (9.0-44.0); Mean Corpuscular HGB Conc 33.6 % (32.0-36.0); Mean Corpuscular Hemoglobin 32.7 pg (27.0-34.0); Mean Corpuscular Volume 97.4 fL (80.0-100.0); Mean Platelet Volume 7.4 fL (7.0-11.0); Mono # (Auto) 0.3 th/mm3 (0.0-0.9); Mono % (Auto) 9.3 % (0.0-8.0); Neut % (Auto) 56.4 % (16.0-70.0); Platelet Count 199 th/mm3 (150-450); Red Blood Count 3.07 mil/mm3 (4.00-5.30); Red Cell Distribution Width 20.7 % (11.6-17.2); White Blood Count 3.5 th/mm3 (4.0-11.0)
[2018-02-07 11:11] LABS: Anion Gap 10 meq/L (5-15); Aspartate Aminotransferase 23 U/L (15-37); Blood Urea Nitrogen 13 mg/dL (7-18); Calcium 7.8 mg/dL (8.5-10.1); Carbon Dioxide 25.1 meq/L (21.0-32.0); Chloride 109 meq/L (98-107); Glomerular Filtration Rate 51 mL/min (>89); Glucose,Random 67 mg/dL (74-106); Potassium 3.4 meq/L (3.5-5.1); Sodium 144 meq/L (136-145)
[2018-02-07 11:15] LABS: Alanine Aminotransferase 15 U/L (10-53); Alkaline Phosphatase 145 U/L (45-117); Total Protein 5.2 g/dL (6.4-8.2)
[2018-02-07] MEDS ORDERED: Lidocaine PF 1% Inj 5 ML Syringe OTHER ONE (12:55)
--- NOTE | 2018-02-07 13:23 | P.PCN ---
Date of procedure: 02/07/18 Pre-op diagnosis: Hematemesis Procedure: PROCEDURE PERFORMED EGD with biopsies PROCEDURE: The procedure, risks and benefits were discussed with Patient/POA and informed consent was obtained. Anesthesia sedated Patient with Diprivan. Patient was placed in the left lateral decubitus position. EGD: The Pentax videoscope was introduced through the oropharynx and advanced to the second portion of the duodenum under direct visualization. Retroflexion was performed in the stomach. FINDINGS: The esophagus this appeared to be unremarkable and within normal limits The stomach there were surgical changes consistent with her history of gastric bypass at the anastomosis between the stomach and the jejunum there was a large deep ulcer and a couple of smaller more superficial ulcerations all at the gastric side of the anastomosis no visible vessel no active bleeding noted biopsies were taken for further evaluation the gastric pouch was too small for retroflexion Small bowel evaluation appeared to be unremarkable and within normal limits ESTIMATED BLOOD LOSS: None SPECIMENS REMOVED: Gastric biopsies COMPLICATIONS: None IMPRESSION: Surgical changes consistent with gastric bypass Anastomotic ulcers PLAN: Await biopsies Continue with PPI Add Carafate Continue with current supportive measures Monitor labs and transfuse as needed EGD in 2 months Follow-up with GI post discharge Advance diet as tolerated Anesthesia: MAC Surgeon: Ferny Gates Condition: stable Disposition: floor
--- NOTE | 2018-02-07 15:48 | P.PN ---
Subjective Interval history: Pain controlled Awaiting EGD Denies N/V Hgb 10.1 today Physical Exam Vital signs: Vital Signs 02/06/18 16:00 02/06/18 16:25 02/06/18 20:00 Temperature 98.5 F 97.4 F L Pulse Rate 78 78 84 Respiratory Rate 17 18 15 Blood Pressure 107/56 L 95/58 L Pulse Oximetry 92 L 92 L 97 02/06/18 22:00 02/07/18 00:00 02/07/18 01:29 Temperature 98.1 F 97.4 F L 98.3 F Pulse Rate 79 76 76 Respiratory Rate 16 17 20 Blood Pressure 114/55 L 122/58 L 117/55 L Pulse Oximetry 97 96 96 02/07/18 01:49 02/07/18 03:20 02/07/18 03:42 Temperature 98.3 F 98.1 F Pulse Rate 72 69 57 L Respiratory Rate 20 20 18 Blood Pressure 113/56 L 123/59 L Pulse Oximetry 96 02/07/18 04:15 02/07/18 04:47 02/07/18 07:46 Temperature 97.6 F 97.9 F 98.1 F Pulse Rate 72 91 H 82 Respiratory Rate 20 18 17 Blood Pressure 117/82 112/78 105/53 L Pulse Oximetry 96 96 94 L 02/07/18 07:47 02/07/18 08:00 02/07/18 09:00 Temperature Pulse Rate 84 Respiratory Rate 20 12 Blood Pressure Pulse Oximetry 97 02/07/18 12:00 02/07/18 13:33 Temperature 97.9 F 98.2 F Pulse Rate 83 84 Respiratory Rate 17 16 Blood Pressure 105/74 100/57 L Pulse Oximetry 97 95 Intake & Output 02/06/18 02/07/18 02/07/18 18:59 06:59 18:59 Intake Total 1000 / 1000 1440 / 1440 110 / 110 Output Total 700 / 700 Balance 1000 / 1000 1440 / 1440 -590 / -590 Weight 45 kg Intake: IV 1000 / 1000 NS Inj 1,000 ML @ 70 mls/hr IV. 1000 / 1000 CONT .[id number] [facility] Rx#:[id number] Oral 0 / 0 240 / 240 Anesthesia Amount 110 / 110 Other 400 / 400 Rbc As-3 Leukoreduced Unit 400 / 400 [id number] Intake (Blood Product) Amt 800 / 800 Rbc As-3 Leukoreduced Unit 400 / 400 [id number] Rbc As-3 Leukoreduced Unit 400 / 400 [id number] Output: Urine 700 / 700 Other: # Voids 1 2 Narrative: Gen.:62 year old malnourished female lying in bed with [place] J collar in place. Skin: Scattered areas of ecchymosis noted to face and BUEs. Head: Normocephalic. LEFT facial ecchymosis. Pupils: PERRL. Neck: Cervical collar. Cardiovascular: Regular rate and rhythm. Respiratory: Lungs clear to auscultation bilaterally. Abdomen: Soft, nontender, nondistended. + BS Musculoskeletal: Extremities without edema or cyanosis. MAEW, +perfused Neuro:Awake and alert. Speech clear. Results - Labs CBC & Chem 7: 02/07/18 10:35 02/07/18 10:35 Laboratory Results - last 24 hr 02/06/18 02/06/18 02/07/18 20:16 22:15 08:53 WBC RBC Hgb 6.9 L* Hct 21.1 L MCV MCH MCHC RDW Plt Count MPV Neut % (Auto) Lymph % (Auto) [place] % (Auto) Eos % (Auto) Baso % (Auto) Neut # (Auto) Lymph # (Auto) [place] # (Auto) Eos # (Auto) Baso # (Auto) WBC Differential Differential Comment PT 12.3 H INR 1.2 Sodium Potassium Chloride Carbon Dioxide Anion Gap BUN Creatinine Estimated GFR Random Glucose Calcium Total Bilirubin AST ALT Alkaline Phosphatase Total Protein Albumin MTS Gel Crossmatch See Detail 02/07/18 02/07/18 10:35 10:35 WBC 3.5 L RBC 3.07 L Hgb 10.1 L D Hct 29.9 L MCV 97.4 D MCH 32.7 MCHC 33.6 RDW 20.7 H D Plt Count 199 MPV 7.4 Neut % (Auto) 56.4 Lymph % (Auto) 29.8 [place] % (Auto) 9.3 H Eos % (Auto) 3.7 Baso % (Auto) 0.8 Neut # (Auto) 2.0 Lymph # (Auto) 1.0 [place] # (Auto) 0.3 Eos # (Auto) 0.1 Baso # (Auto) 0.0 WBC Differential . Differential Comment Auto diff final PT INR Sodium 144 Potassium 3.4 L Chloride 109 H Carbon Dioxide 25.1 Anion Gap 10 BUN 13 Creatinine 1.09 H Estimated GFR 51 L Random Glucose 67 L Calcium 7.8 L Total Bilirubin 1.1 H AST 23 ALT 15 Alkaline Phosphatase 145 H Total Protein 5.2 L D Albumin 2.0 L MTS Gel Crossmatch Assessment and Plan - Plan YAVAPAI-APACHE: Presented to [facility] with rectal bleeding was had multiple bruises. Found to have multiple traumatic injuries and transferred for care. INJURIES: SDH C7 vertebral body fx (non-op) C4 spinous process fx LEFT maxilla and zygoma fxs (non-op) RIGHT clavicle fx RIGHT rib fxs (3, 4, 6, 7) RIGHT pulmonary contusion PMHx: Gastric bypass, depression, MS, ETOH abuse Small SDH, C7 vertebral body fx, C4 spinous process fx Neurosurgery consulted Nonoperative management Maintain [place] J collar Repeat CT brain stable Small bleed no need for Keppra Neuropsychology consulted Avoid second head injury LEFT maxilla and zygoma fxs OMFS consulted Non-op Pain control RIGHT clavicle fx Orthopedics consulted Await plan Sling ordered Assume NWB RUE RIGHT rib fxs, RIGHT pulmonary contusion Supportive care Pulmonary toileting Pain control Bowel regimen CXR shows no cardiopulmonary dx OOB- PT and OT ordered GIB GI consulted EGD today NPO until cleared by GI 02/06: 2 PRBCs Hgb 10.1 today IV Protonix ETOH abuse Hospitalist consulted [facility] protocol PRN Haldol Seizure precautions Plan of care d/w patient at bedside. Collaborating Trauma MD agrees with plan. Case management consulted to assist with DC planning.
--- NOTE | 2018-02-07 15:58 | P.CONOP ---
[facility] Orthopedics Consult Note - [facility] Consult date: 02/07/18 Consult reason: fracture Chief complaint: GI Bleed, Subdural Hematoma, Facial Fractures Narrative: 62-year-old female with a past medical history significant for multiple sclerosis and depression presents to the emergency department for the evaluation of hematemesis and bright red blood per rectum. The patient reports one episode of hematemesis followed by bloody diarrhea that happened yesterday morning. She presented to [facility] for evaluation. Evaluation in [facility] revealed a small subdural hematoma and left-sided facial bone fractures. The patient was transferred to [facility] for further evaluation. On arrival, the patient is noted to have ecchymoses surrounding the left eye and multiple bruises on her back. She complains of a left-sided headache. CT of the neck showed a C7 vertebral body fracture and a fracture of the lateral aspect of the right T1 transverse process. Chest CT significant for fracture of the T5 vertebral body, right clavicular fracture and fracturing of the anterior third, fourth, sixth and seventh ribs. The patient reports that she fell twice, once on Sunday and once on Sunday. She reports that she felt dizzy which she attributes to her multiple sclerosis. She does not remember falling either time. She reports possible loss of consciousness on Sunday. She states the fall happened so fast she is unclear as to how she ended up on her back. She thinks she may have tumbled. She endorses drinking 2-3 beers nightly. She denies any chest pain. No abdominal pain. No lateralizing signs/symptoms. No fever/chills. Currently, patient states she has previously had a right clavicle fracture that was treated nonoperatively. She denies any right shoulder pain or discomfort. Review of Systems Denies fevers, chills, nausea, vomiting. Denies significant chest or abdominal pain. Denies change in urination. Denies weakness, numbness, tingling or back pain. Patient does report mild neck discomfort. Patient denies any extremity pain including right shoulder pain. Patient denies any rash or anxiety. Patient denies any change in vision or throat pain. PMFSH - History History Provided By: Patient, Employee Relations Administrator / EMT - Medical History Medical History: Medical History (Last Reviewed 02/06/18 @ 13:19 by Tristan Martinez MD) Depression H/O: hysterectomy Multiple sclerosis - Surgical History Surgical History: Surgical History (Last Reviewed 02/06/18 @ 13:19 by Tristan Martinez MD) H/O gastric bypass History of cholecystectomy - Family History Family History: Family History (Last Reviewed 02/06/18 @ 13:19 by Tristan Martinez MD) Other CHF (congestive heart failure) Cirrhosis Diabetes mellitus - Tobacco History Second Hand Smoke Exposure: Yes Tobacco Use In Past 30 Days: No Smoking Status: Current every day smoker Tobacco Type: E-Cigarettes - Alcohol History How Often Do You Have a Drink Containing Alcohol: 4 or more times a week - Substance Use History Substance History: No History of Abuse - Travel History Recent Travel in the [place] Within the Last 8 Weeks: No Recent Travel Out of the Country Within the Last 8 Weeks: No - Immunization History Tetanus Immunization: <5 Years Medications and Allergies Active Medications: Active Medications Acetaminophen (Tylenol Liq) 650 mg PO Q4H PRN PRN Reason: FEVER > 101 F Albuterol (Duoneb Neb (Rohit)) 1 ampul NEB Q6HR NEB [facility] Last Admin: 02/07/18 09:12 Dose: 1 ampul Albuterol (Duoneb Neb (Prn)) 1 ampul NEB Q2HR NEB PRN PRN Reason: SHORTNESS OF BREATH Citalopram Hydrobromide (Celexa) 10 mg PO DAILY [facility] Last Admin: 02/07/18 09:45 Dose: Not Given Flumazenil (Romazecon Inj) 0.2 mg IV.PUSH Q1M PRN PRN Reason: OVERSEDATION Folic Acid (Folic Acid) 1 mg PO DAILY [facility] Stop: 02/11/18 08:59 Last Admin: 02/07/18 09:44 Dose: Not Given Haloperidol Lactate (Haldol Inj) 1 mg IV.PUSH Q15M PRN PRN Reason: for severe agitation Sodium Chloride (Ns Inj) 1,000 mls @ 40 mls/hr IV.CONT .Q24H [facility] Last Admin: 02/07/18 07:47 Dose: Not Given Lactated Ringer's (Lr 1000 Ml Inj) 1,000 mls @ 30 mls/hr IV.SIG .Q24H [facility] Stop: 02/08/18 02:14 Sodium Chloride (Ns Inj) 500 mls @ 30 mls/hr IV.SIG .Q10H [facility] Lamotrigine (Lamictal) 200 mg PO BID [facility] Last Admin: 02/07/18 09:44 Dose: Not Given Lidocaine HCl (Lidoderm 5% Patch.12 Hr) 1 patch T-DERMAL DAILY [facility] Last Admin: 02/07/18 09:44 Dose: Not Given Lorazepam (Ativan) 2 mg PO Q2H PRN PRN Reason: for CIWA 11-14 Lorazepam (Ativan Inj) 2 mg IV.PUSH Q2H PRN PRN Reason: for CIWA 11-14 Lorazepam (Ativan Inj) 2 mg IV.PUSH Q1H PRN PRN Reason: for CIWA 15-20 Lorazepam (Ativan Inj) 2 mg IV.PUSH Q15M PRN PRN Reason: for CIWA > 20 Lorazepam (Ativan Inj) 1 mg IV.PUSH Q4H PRN PRN Reason: for CIWA 8-10 Lorazepam (Ativan) 1 mg PO Q4H PRN PRN Reason: for CIWA 8-10 Morphine Sulfate (Morphine Inj) 2 mg IV.PUSH Q4H PRN PRN Reason: pain 6-10 Last Admin: 02/07/18 14:57 Dose: 2 mg Multivitamins/Minerals (Theragran-M) 1 tab PO DAILY [facility] Stop: 02/11/18 08:59 Last Admin: 02/07/18 09:45 Dose: Not Given Pantoprazole Sodium (Protonix Inj) 40 mg IV.PUSH BID [facility] Last Admin: 02/07/18 09:39 Dose: 40 mg Patch Removal (Remove Old Patch) 1 each T-DERMAL HS [facility] Last Admin: 02/06/18 22:00 Dose: Not Given Sodium Chloride (Ns Flush) 2 ml IV.FLUSH BID [facility] Last Admin: 02/07/18 09:44 Dose: Not Given Sodium Chloride (Ns Flush) 2 ml IV.FLUSH PRN PRN PRN Reason: FLUSH AFTER USING IV ACCESS Sucralfate (Carafate) 1 gm PO [facility] Thiamine HCl (Vitamin B1) 100 mg PO DAILY [facility] Last Admin: 02/07/18 09:45 Dose: Not Given Allergies Allergy/AdvReac Type Severity Reaction Status Date / Time No Known Allergies Allergy Verified 02/05/18 23:19 Home Medications Medication Instructions Recorded Confirmed Type citalopram 10 mg PO DAILY 02/05/18 02/05/18 History clonazepam 0.5 mg PO BID 02/05/18 02/05/18 History lamotrigine 200 mg PO BID 02/05/18 02/05/18 History Exam Vital signs: Vital Signs 02/06/18 16:00 02/06/18 16:25 02/06/18 20:00 Temperature 98.5 F 97.4 F L Pulse Rate 78 78 84 Respiratory Rate 17 18 15 Blood Pressure 107/56 L 95/58 L Pulse Oximetry 92 L 92 L 97 02/06/18 22:00 02/07/18 00:00 02/07/18 01:29 Temperature 98.1 F 97.4 F L 98.3 F Pulse Rate 79 76 76 Respiratory Rate 16 17 20 Blood Pressure 114/55 L 122/58 L 117/55 L Pulse Oximetry 97 96 96 02/07/18 01:49 02/07/18 03:20 02/07/18 03:42 Temperature 98.3 F 98.1 F Pulse Rate 72 69 57 L Respiratory Rate 20 20 18 Blood Pressure 113/56 L 123/59 L Pulse Oximetry 96 02/07/18 04:15 02/07/18 04:47 02/07/18 07:46 Temperature 97.6 F 97.9 F 98.1 F Pulse Rate 72 91 H 82 Respiratory Rate 20 18 17 Blood Pressure 117/82 112/78 105/53 L Pulse Oximetry 96 96 94 L 02/07/18 07:47 02/07/18 08:00 02/07/18 09:00 Temperature Pulse Rate 84 Respiratory Rate 20 12 Blood Pressure Pulse Oximetry 97 02/07/18 12:00 02/07/18 13:33 Temperature 97.9 F 98.2 F Pulse Rate 83 84 Respiratory Rate 17 16 Blood Pressure 105/74 100/57 L Pulse Oximetry 97 95 Intake & Output 02/06/18 02/07/18 02/07/18 18:59 06:59 18:59 Intake Total 1000 / 1000 1440 / 1440 110 / 110 Output Total 700 / 700 Balance 1000 / 1000 1440 / 1440 -590 / -590 Weight 45 kg Intake: IV 1000 / 1000 NS Inj 1,000 ML @ 70 mls/hr IV. 1000 / 1000 CONT .[id number] [facility] Rx#:[id number] Oral 0 / 0 240 / 240 Anesthesia Amount 110 / 110 Other 400 / 400 Rbc As-3 Leukoreduced Unit 400 / 400 [id number] Intake (Blood Product) Amt 800 / 800 Rbc As-3 Leukoreduced Unit 400 / 400 [id number] Rbc As-3 Leukoreduced Unit 400 / 400 [id number] Output: Urine 700 / 700 Other: # Voids 1 2 Narrative: Awake, alert, no acute distress Pupils appear equal No JVD. Cervical collar in place. Moist mucous membranes Nonlabored respirations Regular rate Nontender abdomen Right upper extremity: Minimal edema or ecchymosis around the clavicle. No tenderness palpation over medial or lateral aspect of clavicle. Patient demonstrates full active range of motion at the shoulder without discomfort. Patient is neurovascularly intact distally. Brisk cap refill. Left upper extremity and bilateral lower extremities: No visible deformities or tenderness palpation. Full active range of motion and strength throughout. Sensation intact. Brisk cap refill. No rash Normal affect Results - Labs Result Diagrams: 02/07/18 10:35 02/07/18 10:35 Labs: Laboratory Results - last 24 hr 02/06/18 02/06/18 02/07/18 20:16 22:15 08:53 WBC RBC Hgb 6.9 L* Hct 21.1 L MCV MCH MCHC RDW Plt Count MPV Neut % (Auto) Lymph % (Auto) [place] % (Auto) Eos % (Auto) Baso % (Auto) Neut # (Auto) Lymph # (Auto) [place] # (Auto) Eos # (Auto) Baso # (Auto) WBC Differential Differential Comment PT 12.3 H INR 1.2 Sodium Potassium Chloride Carbon Dioxide Anion Gap BUN Creatinine Estimated GFR Random Glucose Calcium Total Bilirubin AST ALT Alkaline Phosphatase Total Protein Albumin MTS Gel Crossmatch See Detail 02/07/18 02/07/18 10:35 10:35 WBC 3.5 L RBC 3.07 L Hgb 10.1 L D Hct 29.9 L MCV 97.4 D MCH 32.7 MCHC 33.6 RDW 20.7 H D Plt Count 199 MPV 7.4 Neut % (Auto) 56.4 Lymph % (Auto) 29.8 [place] % (Auto) 9.3 H Eos % (Auto) 3.7 Baso % (Auto) 0.8 Neut # (Auto) 2.0 Lymph # (Auto) 1.0 [place] # (Auto) 0.3 Eos # (Auto) 0.1 Baso # (Auto) 0.0 WBC Differential . Differential Comment Auto diff final PT INR Sodium 144 Potassium 3.4 L Chloride 109 H Carbon Dioxide 25.1 Anion Gap 10 BUN 13 Creatinine 1.09 H Estimated GFR 51 L Random Glucose 67 L Calcium 7.8 L Total Bilirubin 1.1 H AST 23 ALT 15 Alkaline Phosphatase 145 H Total Protein 5.2 L D Albumin 2.0 L MTS Gel Crossmatch Assessment and Plan - Assessment and Plan 62-year-old female with closed right clavicle fracture Radiographs of the right clavicle ordered. CT scan of the chest reviewed. There does appear to be a medial and lateral aspect of the right clavicle fracture which is minimally to nondisplaced. Per the patient, she does have history of right clavicle fracture. She denies any symptoms currently. I discussed options of management including nonoperative versus operative intervention. At this time, patient is interested in nonoperative treatment. I have encouraged the patient be nonweightbearing to the right upper extremity in a sling at this time. She can do gentle range of motion exercises. I did discuss with the patient that I would like to see her back in my office in approximately 2 weeks after discharge. Should her fracture displace significantly, she could require operative intervention. Patient voiced understanding of this and would like to continue with nonoperative treatment.
--- NOTE | 2018-02-07 17:10 | XR ---
EXAM DATE: 02/07/2018 5:06 PM EDT AGE/SEX: 62 years / Female INDICATIONS: Fracture, over one year. CLINICAL DATA: This is the patient's initial encounter. Patient reports that signs and symptoms have been present for > 1 year and indicates a pain score of 0/10. MEDICAL/SURGICAL HISTORY: Multiple sclerosis. Cirrhosis. Diabetes. Gastric bypass. Hysterecto my. Cholecystectomy. COMPARISON: No prior exams available for comparison. FINDINGS: Fracture through the distal right clavicular diaphysis may be chronic. Minimal displacement of the fr acture fragments. Loss of the right acromial humeral interval characteristic of a chronic rotator cuf f injury. CONCLUSION: 1. Fracture through the distal right clavicular diaphysis may be chronic. There is minimal displacem ent. 2. Loss of the right acromiohumeral interval characteristic of a chronic rotator cuff injury. Electronically signed by: Parvez Armstrong MD 02/07/2018 5:08 PM EDT
[2018-02-07] MEDS: Sucralfate 1 GM Tablet PO SCH ×2 (17:19→20:07)
[2018-02-08] MEDS: Morphine Inj 4 MG/ML Vial IV.PUSH PRN (04:45)
[2018-02-08 05:03] LABS: Hematocrit 27.3 % (35.0-46.0); Hemoglobin 9.1 gm/dL (11.6-15.3); Mean Corpuscular HGB Conc 33.4 % (32.0-36.0); Mean Corpuscular Hemoglobin 32.4 pg (27.0-34.0); Mean Corpuscular Volume 97.1 fL (80.0-100.0); Mean Platelet Volume 7.2 fL (7.0-11.0); Platelet Count 197 th/mm3 (150-450); Red Blood Count 2.81 mil/mm3 (4.00-5.30); Red Cell Distribution Width 20.2 % (11.6-17.2); White Blood Count 3.8 th/mm3 (4.0-11.0)
[2018-02-08 05:04] LABS: Calcium 7.9 mg/dL (8.5-10.1); Carbon Dioxide 26.9 meq/L (21.0-32.0); Potassium 3.4 meq/L (3.5-5.1)
--- NOTE | 2018-02-08 07:09 | XR ---
EXAM DATE: 02/08/2018 7:03 AM EDT AGE/SEX: 62 years / Female INDICATIONS: Follow up trauma from fall, short of breath CLINICAL DATA: This is the patient's subsequent encounter. Patient reports that signs and symptoms h ave been present for 2 days and indicates a pain score of Nonresponsive. MEDICAL/SURGICAL HISTORY: Cirrhosis. Diabetes. Gastric bypass. Lobectomy. COMPARISON: [facility] [place] 1V SINGLE AP, 02/06/2018. . FINDINGS: A single AP view of the chest demonstrates the lungs to be symmetrically aerated without evidence of mass, infiltrate or effusion. The cardiomediastinal contours are unremarkable. Osseous structures d emonstrate remote nonunited right distal clavicle fracture. CONCLUSION: Clear lungs. Electronically signed by: Kayode Lance MD 02/08/2018 7:08 AM EDT
[2018-02-08] MEDS ORDERED: Potassium Chloride 25 MEQ Effervescent Tablet PO ONE (07:13)
[2018-02-08 08:53] VITALS: BP 110/75; TEMP 98.3
[2018-02-08 08:57] VITALS: PULSE 84; RESP 20; O2SAT 95
[2018-02-08] MEDS: Sucralfate 1 GM Tablet PO SCH ×2 (11:08→12:57)
[2018-02-08] MEDS: lamoTRIgine 100 MG Tablet PO SCH (11:09)
[2018-02-08] MEDS: Multivitamin/Minerals Therapeutic Tablet PO SCH (11:09)
[2018-02-08] MEDS: Pantoprazole Inj 40 MG Vial IV.PUSH SCH (11:09)
[2018-02-08] MEDS: Citalopram 20 MG Tablet PO SCH (11:09)
[2018-02-08] MEDS: Folic Acid 1 MG Tablet PO SCH (11:10)
[2018-02-08] MEDS: Lidocaine 5% Patch T-DERMAL SCH (11:14)
--- NOTE | 2018-02-08 16:09 | P.DS ---
Date of admission: 02/05/18 23:28 Primary care physician: Irasema Primary Care Physician Attending physician on discharge: Christoph Carney Anticipated date of discharge: 02/08/18 Brief History from admission: Fall. DS: Diagnosis - Discharge Diagnosis (1) Acute subdural hematoma Status: Acute (2) Cranial facial fractures Status: Acute (3) GI bleed Status: Acute (4) Closed cervical spine fracture Status: Acute (5) Maxillary sinus fracture Status: Acute DS: Medications - Discharge Medications Prescriptions: hydrocodone-acetaminophen [[place]] 1 tab PO Q6H 3 Days #12 tab lidocaine [Lidoderm] 1 patch TRANSDERMAL DAILY 7 Days #7 each pantoprazole [Protonix] 40 mg PO BID 30 Days #60 tab sucralfate 1 gm PO ACHS 7 Days tab DS: Summary Hospital Course: MATCH-E-BE-NASH-SHE-WISH BAND: This is a 62-year-old female who sustained a fall. The patient states she fell twice on Sunday, then again on Sunday. On Sunday she became nauseous and began vomiting bright red blood and having bloody stools. She also had multiple bruises. She was found to have multiple traumatic injuries and transferred for care. Trauma transfer from [facility]. INJURIES: RIGHT frontal SDH LEFT maxillary sinus fx (non-op) LEFT zygoma fx (non-op) Bilat Nasal bone fx (old) C4 spinous process fx C7 vertebral body fx (non-op) RIGHT clavicle fx (non-op) RIGHT rib fxs (3, 4, 6, 7) RIGHT pulmonary contusion T1 transverse process (acute) OLD Nasal fx OLD T1 transverse process fx OLD T5 vertebral body fx T11-L1 with kyoplasty 5mm lung nodule- F/U CT in 6 months PMHx: Gastric bypass. CHF. DM. Depression. MS. Smoker. ETOH abuse. Cirrhosis Patient really wants to go home. Collaborated with gastroenterology. They have cleared the patient for discharge. The patient is now tolerating a po diet. Eating and drinking well. Pain is being managed well with PO pain medications, and patient is being a provided with a script for pain meds upon discharge. [This patient will be prescribed narcotic pain medications due to his traumatic injuries. The patient has a normal physiological response to severe traumatic injuries and surgery. He will need acute pain management with prescribed narcotic treatment. The [employer] prescription drug monitoring program database has been queried.] (NO driving while taking narcotic pain medication enforced to patient.) Pt is having regular bowel movements. Pt has been participating in PT and OT while admitted at [place] and has been ambulating with their assistance and independently. Patient is provided a referral for outpatient PT if needed. All follow up appointments have been provided and discussed with the patient. It is recommended that the patient keeps all his follow up appointments for continued recovery. Patient's condition and plan of care discussed with collaborating trauma surgeon. He is agreeable to plan for discharge today. Therefore, the patient is stable to be safely discharged home from a trauma surgery standpoint. Thank you for allowing us to participate in his care. We wish Cher the best in his recovery. RIGHT frontal SDH LEFT maxillary sinus fx (non-op) LEFT zygoma fx (non-op) Bilat Nasal bone fx (old) C4 spinous process fx C7 vertebral body fx (non-op) Syncope Neurosurgery consulted and assisting in management and care Supportive care Serial neuro checks 02/06: CT head- stable CT brain for any change in neurological status Cervical fractures are nonoperative [place] J collar OMFS consulted and assisting in management and care All facial fractures are nonoperative Sinus precautions No nose blowing Echo- EF 55-60%. Diastolic dysfunction Pain management PT and OT ordered Encourage out of bed Neuropsych consulted and assisting in management and care Follow-up with neurosurgery outpatient Follow-up with OMFS outpatient RIGHT clavicle fx (non-op) Orthopedics consulted and assisting in management and care Nonoperative management at this time Supportive care Pain management Encourage out of bed PT and OT ordered NWB RUE -sling for comfort and support Follow-up with orthopedics outpatient RIGHT rib fxs (3, 4, 6, 7) RIGHT pulmonary contusion O2 nasal cannula as needed Aggressive pulmonary toileting Supportive care Chest x-ray as needed A.m. chest x-ray clear/stable Pain management Encourage out of bed PT and OT ordered OLD Nasal fx OLD T1 transverse process fx OLD T5 vertebral body fx T11-L1 with kyoplasty Supportive care Pain management GI bleed GI consulted and assisting in management care 02/07: EGD w biopsies. (large deep ulcer and a couple of smaller more superficial ulcerations all at the gastric side. NO ACTIVE BLEEDING) Supportive care Trend H&H 02/06: 2 PRBCs H&H - 9. stable Does not meet transfusion triggers at this time No active signs of bleeding No nausea No red stools Advance diet as tolerated Protonix BID Carafate QID Follow-up with GI outpatient GI has cleared the patient for discharge Hypokalemia K = 3.4 Potassium 25 VF x1 dose today Magnesium = 1.6 WNL *5mm lung nodule Follow-up with primary care physician F/U CT in 6 months - Time Spent with Patient Total time spent providing and/or coordinating discharge services: Greater than 30 minutes - Quality: VTE Deep Vein Thrombosis/Pulmonary Embolism Present on Admission: No Exam Vital signs: Vital Signs 02/07/18 16:00 02/07/18 20:00 02/07/18 21:17 Temperature 98.5 F 98.2 F Pulse Rate 79 97 H 77 Respiratory Rate 17 18 16 Blood Pressure 118/71 130/60 Pulse Oximetry 98 95 98 02/08/18 00:00 02/08/18 04:00 02/08/18 08:00 Temperature 98.2 F 98.1 F 98.3 F Pulse Rate 93 H 94 H 89 Respiratory Rate 18 18 14 Blood Pressure 119/59 L 130/65 110/75 Pulse Oximetry 94 L 92 L 94 L 02/08/18 08:56 02/08/18 08:57 Temperature Pulse Rate 84 Respiratory Rate 20 Blood Pressure Pulse Oximetry 95 Intake & Output 02/07/18 02/08/18 02/08/18 18:59 06:59 18:59 Intake Total 1730 / 1730 Output Total 700 / 700 Balance 1030 / 1030 Weight 59.6 kg Intake: IV 1000 / 1000 NS Inj 1,000 ML @ 40 mls/hr IV. 1000 / 1000 CONT .Q24H [facility] Rx#:[id number] Oral 620 / 620 Anesthesia Amount 110 / 110 Output: Urine 700 / 700 Other: # Voids 3 3 Date of Last Bowel Movement 02/07/18 02/07/18 Narrative: GENERAL: This is a 62-year-old female lying in bed. No distress noted. SKIN: Warm and dry. Scattered left facial ecchymosis HEAD: Atraumatic. Normocephalic. EYES: PERRLA ENT: No nasal bleeding or discharge. Mucous membranes pink and moist. NECK: Trachea midline. No JVD. CARDIOVASCULAR: Regular rate and rhythm. RESPIRATORY: No accessory muscle use. Lungs are clear to auscultation. Breath sounds equal bilaterally. No distress or dyspnea. GASTROINTESTINAL: BS + x 4 quads. Abdomen soft, non-tender, nondistended. MUSCULOSKELETAL: Extremities without cyanosis, or edema. + peripheral pulses x 4 extremities. Warm with good capillary refill and sensation. MAEW. NEUROLOGICAL: Awake and alert. Normal speech and pattern. Results Procedures completed during hospitalization: . Pending studies at discharge: Pending at discharge 02/07/18 07:19 Surgical [PTH] Routine Labs on day of discharge: Labs from last 24 hours 02/08/18 02/08/18 02/08/18 04:20 04:20 04:20 WBC 3.8 L RBC 2.81 L Hgb 9.1 L Hct 27.3 L MCV 97.1 MCH 32.4 MCHC 33.4 RDW 20.2 H Plt Count 197 MPV 7.2 Sodium 143 Potassium 3.4 L Chloride 108 H Carbon Dioxide 26.9 Anion Gap 8 BUN 9 Creatinine 0.88 Estimated GFR 65 L Random Glucose 69 L Calcium 7.9 L Magnesium 1.6 - Impressions ITS Impressions Abdomen/Pelvis CT 02/06/18 00:00 CONCLUSION: 1. No acute abnormality seen. 2. Patient status post vertebroplasty at T11 and L1. There appears to be prominent posterior osteophytic ridging at the T12-L1 and L1-L2 disc levels is likely a chronic response secondary to prior fracture. 3. Small 5 mm hyperenhancing mass of the right lower lobe.. This is nonspecific. This can be followed with a CT or MRI examination 6 months. 4. Mild free fluid in the pelvis. 5. Small midline umbilical hernia containing mesenteric fat. Cervical Spine CT 02/06/18 00:00 CONCLUSION: 1. Acute fracture at the base of the C4 spinous process. 2. Suspected subtle fracturing at the anterior inferior right lateral aspect of the C7 vertebral body best seen on the coronal images. 3. Fracturing of the lateral aspect of the right T1 transverse process. 4. Degenerative change as described above. Chest CT 02/06/18 00:00 CONCLUSION: 1. Fracture of the superior aspect of the T5 vertebral body. There is mild concavity to the superior endplate of T5 sclerosis at the T5 vertebral body. 2. Acute fracturing at the right T1 transverse process. 3. Fracture with medial and lateral aspect of the right clavicle. 4. Fracturing of the anterior right third, fourth, sixth and seventh ribs. Head CT 02/06/18 08:16 CONCLUSION: 1. Small acute to subacute right-sided subdural hematoma with approximately 3 mm of separation along the right frontal/parietal lobe. 2. Fracture involving the posterior wall of left maxillary sinus with an air- fluid level. There also appears to be a nonspecific fracture involving the mid body of the left zygomatic arch. 3. Bilateral cortical atrophy and chronic white matter changes. . Face CT 02/06/18 09:38 CONCLUSION: 1. Left posterior lateral maxillary wall fractures with fluid in the maxillary sinus. 2. Nasal bone fractures. 3D Reconstruction 02/06/18 10:52 CONCLUSION: 1. 3-D images, as above. Clavicle X-Ray 02/07/18 00:00 CONCLUSION: 1. Fracture through the distal right clavicular diaphysis may be chronic. There is minimal displacement. 2. Loss of the right acromiohumeral interval characteristic of a chronic rotator cuff injury. Chest X-Ray 02/08/18 06:00 CONCLUSION: Clear lungs. Discharge Plan - Discharge Disposition Patient Disposition: 01 Discharge Home - Discharge Condition Condition: Stable - Discharge Order Discharge Orders: Discharge Order (Routine); Ordered 02/08/18 Ordered By: Zakia Hernández - Discharge Details Anticipated Discharge Date: 02/08/18 - Physicians Team Primary Care Provider: Primary Care Physici,Irasema Attending Provider: Crhistoph Carney Other Providers: Devon Real MD ; Ferny Gates MD ; Man Thorpe MD ; Pineda Bhagat MD ; Systems,[employer] ; Zakia Hernández ARNP ; Linwood Irby MD ; Toshia Rudd MD ; Edi Choi ARNP ; Christoph Carney MD ; Tristan Martinez MD ; Micah Ennis MD ; Gómez Meehan PhD ; Sangeetha Hardy MD ; Stas Ramirez MD
--- NOTE | 2018-02-10 15:01 | MB ---
cc: Devon Real MD DATE: 02/06/2018 HISTORY OF PRESENT ILLNESS: This is a 62-year-old female with a history of gastric bypass, who is also abusing alcohol, had a syncopal event and who presented to outside hospital for emesis of bright red blood as well as bloody stools. In evaluation at outside hospital, the patient reported falling 2 days prior. She had a head CT which revealed a subdural hematoma and facial fractures. She was transferred to [place] for further management. The patient has a history of falling. She has history of alcohol abuse as well. She complains of headache and left-sided pain. No chest pain, no shortness of breath. She has no abdominal pain. PAST MEDICAL HISTORY: Significant for above, as well as multiple sclerosis, history of cholecystectomy. She smokes e-cigarettes. MEDICATIONS: Can be obtained from the medical record. ALLERGIES: SHE HAS NO ALLERGIES. PHYSICAL EXAMINATION: GENERAL: She is lying in bed in no acute distress. She had ecchymosis over her left face. HEENT: Her pupils are equal and reactive. NECK: Trachea is midline. LUNGS: Respirations clear. CARDIOVASCULAR: Regular. GASTROINTESTINAL: Soft, nontender. MUSCULOSKELETAL: No deformities. NEUROLOGIC: Nonfocal. SKIN: Multiple areas of ecchymoses on extremities. BACK: Nontender. RADIOLOGIC IMAGES: CT of the brain revealed left-sided maxillary wall and zygomatic arch fracture. CT of the cervical spine revealed spinous process fracture. CT of the thorax revealed rib fractures and T5 fracture. CT of the abdomen and pelvis, no visceral injuries. The patient's hemoglobin is 7.3, hematocrit 22. ASSESSMENT AND PLAN: This is a patient with the above-stated injuries who has upper gastrointestinal bleed, likely related to marginal ulcer due to her alcoholism and her gastric bypass. The patients us being admitted, GI has been consulted. She will need an endoscopy. PPIs has been started. Neurosurgery been consulted as well as sports nutritionist. Will provide pain management and monitor neurological status. The patient's care will be transferred to the trauma service. MD ROLANDO Chavez/wai , 11:05 AM , 11:12 AM
--- NOTE | 2018-02-11 20:41 | ECG ---
Date Performed: 02/07/2018 Time Performed: 21:41:56 PTAGE: 62 years EKG: Sinus rhythm LOW QRS VOLTAGE IN PRECORDIAL LEADS Nonspecific T wave changes, which are new when compared to Previ ous tracing. BORDERLINE ECG PREVIOUS TRACING : 08/09/2011 11.37 DOCTOR: Vince Borges Interpretating Date/Time 02/11/2018 20:39:46
== END 2018-02-08 13:26 | disposition home or self-care (01) ==
LOC: NEPE 23:07 → NEDA 23:28 → NEDH 02-06 04:51 → H7ONC 02-06 13:50 → NEDH 02-06 13:50 → N07 02-06 21:53
PROVIDERS: ADMIT Surgery; ATTEND Surgery
PROC: PANENDO (2018-02-07 12:55)